=== PATIENT | male | born 1950 | race Caucasian/White ===

== ENCOUNTER 2018-05-21 13:37 | Emergency (ER) | payer MEDICARE, MEDICAID ==
[~2018-05-21] VITALS: Ht 185.4 cm; Wt 68.5 kg
--- NOTE | 2018-05-21 13:42 | NUR ---
CALLED IN WR, NO RESPONSE
--- NOTE | 2018-05-21 14:25 | NUR ---
FOUND PT OUTSIDE REC'D TO ER C/O RT GROIN PAIN AND LEES
--- NOTE | 2018-05-21 15:19 | NUR ---
Patient discharged to home in stable condition. Written and verbal after care instructions given. Patient verbalizes understanding of instruction.
[2018-05-21 15:25] VITALS: BP 133/89
== END 2018-05-21 15:26 | disposition home or self-care (01) ==
LOC: ER 13:38
DX: K40.90 Unilateral inguinal hernia, without obstruction or gangrene, not specified as recurrent (principal); F03.90 Unspecified dementia, unspecified severity, without behavioral disturbance, psychotic disturbance, mood disturbance, and anxiety; G93.40 Encephalopathy, unspecified; F17.200 Nicotine dependence, unspecified, uncomplicated; Z95.0 Presence of cardiac pacemaker; Z98.890 Other specified postprocedural states; Z60.2 Problems related to living alone
CPT/HCPCS: 74176; 99284; A4606; Z7610

== ENCOUNTER 2019-06-12 13:10 | Inpatient (IN) | payer MEDICARE, MEDICAID ==
[~2019-06-12] VITALS: Ht 175.3 cm; Wt 79.8 kg
--- NOTE | 2019-06-12 13:55 | NUR ---
Homeless/Suicidal "I dont want to live anymore I have a shitload of meds". PT AAOX3, VSS. RR EVEN & UNLABORED. DENIES CP, SOB, DIZZINESS, N/V @ THIS TIME. SEEN & EVAL'D BY DR. DAVILA. WILL CONT TO MONITOR. ANA @ BS.
[2019-06-12 14:05] LABS: BASOPHILS # (AUTO) 0.1 /CMM (0.0-0.2); BASOPHILS % (AUTO) 1.4 % (0.0-2.0); EOSINOPHILS % (AUTO) 1.3 % (0.0-6.0); HEMATOCRIT 45 % (39-51); LYMPHOCYTES # (AUTO) 1.4 /CMM (0.8-4.8); LYMPHOCYTES % (AUTO) 24.2 % (20.0-44.0); MEAN CORPUSCULAR HGB CONC 34 g/dl (31.0-36.0); MEAN CORPUSCULAR VOLUME 92 fL (80-96); MONOCYTES # (AUTO) 0.6 /CMM (0.1-1.30); MONOCYTES % (AUTO) 9.8 % (2.0-12.0); NEUTROPHILS # (AUTO) 3.6 /CMM (1.8-8.9); NEUTROPHILS % (AUTO) 63.3 % (43.0-81.0); PLATELET COUNT (AUTO) 316 /CMM (150-450); RED BLOOD CELL COUNT(AUTO) 4.83 MIL/uL (4.5-6.0); WHITE BLOOD COUNT (AUTO) 5.6 K/uL (4.3-11.0)
[2019-06-12 14:09] LABS: APPEARANCE,URINE Clear (CLEAR); BILIRUBIN,URINE SMALL (NEGATIVE); BLOOD, URINE Negative Ery/uL (NEGATIVE); COLOR,URINE Dark (YELLOW); KETONES,URINE 15 (NEGATIVE); LEUKOCYTE ESTERASE ,URINE Negative (NEGATIVE); NITRITE, URINE Negative (NEGATIVE); PROTEIN,URINE Negative (NEGATIVE); UGLUCOSE Negative (NEGATIVE)
[2019-06-12 14:12] LABS: CALCIUM, SERUM 9.3 mg/dL (8.5-10.1); CARBON DIOXIDE 31 mmol/L (21-32); CHLORIDE 101 mmol/L (98-107); GLUCOSE 138 mg/dL (74-106); SODIUM SERUM 136 mmol/L (136-145); UREA NITROGEN, BLOOD 13 mg/dL (7-18)
[2019-06-12 14:25] LABS: ACETAMINOPHEN < 10 ug/ml (10-30); ALANINE AMINOTRANSFERASE 31 U/L (12-78); ALBUMIN 3.7 g/dL (3.4-5.0); ALCOHOL, BLOOD < 3 mg/dL (0-0); ALKALINE PHOSPHATASE 64 U/L (46-116); ASPARTATE AMINOTRANSFERASE 20 U/L (15-37); BILIRUBIN,DIRECT 0.1 mg/dL (0.0-0.2); BILIRUBIN,TOTAL 0.4 mg/dL (0.2-1.0); SALICYLATE 3.9 mg/dL (2.8-20.0); TOTAL PROTEIN, SERUM 6.9 g/dL (6.4-8.2)
[2019-06-12] MEDS ORDERED: AMLO5TAB9 PO (15:20)
[2019-06-12] MEDS ORDERED: DOCU-141 PO (15:20)
[2019-06-12] MEDS ORDERED: BISA5TAB10 PO (15:20)
[2019-06-12] MEDS ORDERED: HYDR-4354 PO (15:20)
[2019-06-12] MEDS ORDERED: MULT-1168 PO (15:20)
[2019-06-12] MEDS ORDERED: GABA-532 PO (15:20)
[2019-06-12] MEDS ORDERED: TRAZ-214 PO (15:20)
[2019-06-12] MEDS ORDERED: SERT100T PO (15:20)
[2019-06-12] MEDS ORDERED: LORA1TAB PO (15:20)
[2019-06-12] MEDS ORDERED: ATOR10TA PO (15:20)
[2019-06-12] MEDS ORDERED: ALBU6.7H IH (15:21)
[2019-06-12] MEDS ORDERED: LIDO28.310 TP (15:23)
--- NOTE | 2019-06-12 16:00 | NUR ---
Patient is resting comfortably in bed with eyes closed. Easily aroused. VSS
--- NOTE | 2019-06-12 17:16 | NUR ---
REPORT GIVEN TO ROMAIN VANG FOR BLANQUITA
--- NOTE | 2019-06-12 19:30 | NUR ---
Admitted a 68 y/o male, homeless and evaluated at [facility]. On 5150 hold as DTS, per hold patient has SI with plan to overdose. Patient had multiple history of overdose per record. Patient admitting Dx. Psychosis. Medical dx. inguinal hernia, pacemaker, dementia. NKA. Upon face to face evaluation, patient appeared alert and oriented x 2-3, resting, paranoid, uncooperative, isolative and depressed mood. Patient denies SI/HI and hallucinations. Explained the paper works by the previous shift and patient signed the consents. Belongings and contraband checked by the previous shift. Q15 min checks started. Care plan started. Vital signs checked and recorded. Patient's rights discussed, guide to prescription meds handbook provided. Patient advised of the hold. Patient refused body check, patient refused and stated "dont bother me". Notified Dr. Wynn of the admission. Will monitor patient for mood, safety and behavior. Will endorse to the day shift.
--- NOTE | 2019-06-12 19:30 | NUR ---
Admitted a 68 y/o male, homeless and evaluated at [facility] On 5150 hold as DTS, per hold patient has SI with plan to overdose. Patient admitting Dx. Psychosis. Medical dx. inguinal hernia, pacemaker, dementia. NKA. Upon face to face evaluation, patient appeared alert and oriented x 1, paranoid, suspicious, aggressive, verbally abusive, uncooperative, anxious, confused, disorganize, disoriented. Speech is rambling and nonsensible. Explanation provided, limit settings done and redirected the patient. Explained the paper works and patient unable to sign the consents. Informed of visiting hours and unit policies. Belongings and contraband checked. Q15 min checks initiated. Care plan started. Vital signs checked and recorded. Patient's rights discussed, guide to prescription meds handbook provided. Patient advised of the hold. Notified Dr. Howard of the admission. Will monitor patient for mood, safety and behavior. Will endorse to the day shift. Addendum: 06/12/19 at 2024 by MONICA DARDEN II, RN ENTERED IN ERROR
[2019-06-12] MEDS ORDERED: ACETAMINOPHEN 325 MG TABLET PO PRN (21:00)
[2019-06-12] MEDS ORDERED: TEMAZEPAM 7.5 MG CAPSULE PO PRN (21:00)
[2019-06-12] MEDS ORDERED: MAG HYDROX/AL HYDROX/SIMETH 30 ML UDC PO PRN (21:00)
[2019-06-12] MEDS ORDERED: BLOOD SUGAR DIAGNOSTIC 1 EACH STRIP IN ONE (21:00)
[2019-06-12] MEDS ORDERED: MAGNESIUM HYDROXIDE 30 ML UDC PO PRN (21:00)
[2019-06-12] MEDS ORDERED: BISACODYL (5 MG) 5 MG TABLET.DR PO PRN (23:00)
[2019-06-12] MEDS ORDERED: ALBUTEROL SULFATE INH 18 GM HFA.AER.AD IH PRN (23:00)
[2019-06-12] MEDS: HYDROCODONE/APAP 10/325MG 1 EA TABLET PO PRN (23:51)
[2019-06-13] MEDS: LORAZEPAM 0.5 MG TABLET PO PRN ×2 (00:27→22:09)
[2019-06-13] MEDS ORDERED: ALBUTEROL FS 2.5 MG/0.5 ML VIAL.NEB NEB PRN (00:30)
--- NOTE | 2019-06-13 01:00 | NUR ---
GPS RN NOTE: PATIENT REQUESTING TO HAVE HIS INHALER AND THE ORDER IS ALBUTEROL HFA, RECEIVED AND ORDER FROM DANNI VERAS TO CHANGE THE ORDER INTO INH NOTED AND CARRIED OUT
[2019-06-13 01:43] VITALS: BP 135/65
--- NOTE | 2019-06-13 06:14 | NUR ---
GPS RN NOTE: PATIENT REFUSED ARJUN ()(RP) TO BE NOTIFIED OF HIS ADMISSION, PER PATIENT HE DON'T COMMUNICATE WITH HER FOR 15 YEARS. WILL CONTINUE TO MONITOR Q15 MINS FOR SAFETY
[2019-06-13 07:44] LABS: CHOLESTEROL 134 mg/dL (<200); HDL CHOLESTEROL 35 mg/dL (40-60); LDL 92 mg/dL (0-99); TRIGLYCERIDES 89 mg/dL (30-150)
[2019-06-13 08:00] VITALS: BP 103/73
[2019-06-13] MEDS: HYDROCODONE/APAP 10/325MG 1 EA TABLET PO PRN ×3 (08:08→22:14)
--- NOTE | 2019-06-13 08:12 | NUR ---
MEDICATED FOR NECK AND BACK PAIN WITH NORCO 10 MG PO.
[2019-06-13] MEDS: AMLODIPINE BESYLATE 5 MG TABLET PO SCH (09:00)
--- NOTE | 2019-06-13 10:36 | NUR ---
WOUND CARE CONSULT: PT SEEN ON REQUEST OF DR GARCIA FOR FACIAL LESION ABOVE UPPER LIP, PRESENT ON ADMISSION. PT STATES HAS HAD THIS LESION FOR A LONG TIME. SURGICAL CONSULT WAS CALLED TO DR ROCHA BY DR GARCIA. PT IS AMBULATORY AND CONTINENT. PT REFUSED FULL SKIN ASSESSMENT AT THIS TIME. WILL SEE PRN.
[2019-06-13] MEDS: NICOTINE PATCH (21MG) 21 MG PATCH.TD24 TD SCH (10:52)
[2019-06-13] MEDS: ATORVASTATIN 40 MG TABLET PO SCH (10:53)
[2019-06-13] MEDS: GABAPENTIN 100 MG CAPSULE PO SCH ×3 (10:54→17:48)
[2019-06-13] MEDS: OLANZAPINE 2.5 MG TABLET PO SCH ×2 (11:38→17:48)
--- NOTE | 2019-06-13 11:42 | NUR ---
DR. FRIEDMAN IN SPOKE WITH PT. PSYCH MEDS ORDERED,PT. STATES WON'T SIGN CONSENT.TOOK ZYPREXA.DR. YUAN IN AND TO CONTACT DR. MARQUES FOR LESION ON MOUTH WD NURSE IN WELL.
[2019-06-13] MEDS ORDERED: SERTRALINE HCL 25 MG TABLET PO ONE (12:00)
--- NOTE | 2019-06-13 13:45 | NUR ---
abram here with plans to do bx of lip lesion.
[2019-06-13] MEDS ORDERED: LIDOCAINE 1%-EPI 1:100,000 20 ML VIAL TP ONE (14:30)
--- NOTE | 2019-06-13 14:31 | NUR ---
pt. refused photo of lip lesion.
--- NOTE | 2019-06-13 15:13 | NUR ---
wharf labourer here and bx mass rt lip area done and taken to lab.pt. tolerated well.
[2019-06-13 16:00] VITALS: BP 124/84
--- NOTE | 2019-06-13 17:48 | NUR ---
given norco for pain.
[2019-06-13 20:26] VITALS: BP 123/65
[2019-06-13 20:30] VITALS: BP 127/65
[2019-06-13] MEDS: DIVALPROEX SODIUM 250 MG TABLET.DR PO SCH (22:09)
--- NOTE | 2019-06-13 22:15 | NUR ---
CARDIOPULMONARY SUPERVISOR NOTES COMPLIANT OF LOWER BACK PAIN AND FEELING ANXIETY, NORCO TABLET GIVEN WELL HIS ATIVAN TABLET. SNACKS ALSO SERVED. PT STATED "THANK YOU ". KEPT HIM COMFORTABLE AT ALL TIMES. PT REFUSED TO HAVE SIDE RAILS UP BUT BED IN LOW AND LOCK IN POSITION. WILL CONTINUE MONITORING.
--- NOTE | 2019-06-14 | NUR ---
SEARCH MANAGER NOTES PT SLEEPING COMFORTABLY IN BED WITHOUT ANY DISTRESS NOTED.
[2019-06-14] MEDS: HYDROCODONE/APAP 10/325MG 1 EA TABLET PO PRN ×2 (06:10→18:19)
--- NOTE | 2019-06-14 06:10 | NUR ---
DIRECTOR FEDERAL NOTES PAIN MGT. PT WOKE UP AND SEEN WALKING TO THE RESTROOM THEN AFTER THAT HE ASKED FOR PAIN MEDICATION, NORCO TABLET GIVEN ORDERED. EDUCATE PT REGARDING HIS PAIN MEDICATION FOR POSSIBLE SIDE EFFECT AND PT UNDERSTOOD WELL. STILL REFUSING HIS SIDE RAILS TO BE UP FOR HIS SAFETY. HE STATED "I'M OK ". KEPT HIM WARM AND COMFORTABLE AT ALL TIMES. WILL CONTINUE MONITORING.
[2019-06-14 08:00] VITALS: BP 102/62
[2019-06-14] MEDS: AMLODIPINE BESYLATE 5 MG TABLET PO SCH (09:00)
[2019-06-14] MEDS: OLANZAPINE 2.5 MG TABLET PO SCH ×2 (09:05→21:00)
[2019-06-14] MEDS: GABAPENTIN 100 MG CAPSULE PO SCH ×3 (09:05→17:00)
[2019-06-14] MEDS: NICOTINE PATCH (21MG) 21 MG PATCH.TD24 TD SCH (09:05)
[2019-06-14] MEDS: METFORMIN 500 MG TABLET PO SCH ×2 (09:06→17:00)
[2019-06-14] MEDS: ATORVASTATIN 40 MG TABLET PO SCH (09:06)
[2019-06-14] MEDS: DIVALPROEX SODIUM 250 MG TABLET.DR PO SCH ×2 (09:09→17:00)
[2019-06-14] MEDS: LORAZEPAM 0.5 MG TABLET PO PRN ×2 (11:30→21:37)
--- NOTE | 2019-06-14 11:35 | NUR ---
RN NOTES PATIENT IS AGITATED, GIVEN ATIVAN PO PRN. WILL CONTINUE TO MONITOR.
--- NOTE | 2019-06-14 11:53 | NUR ---
Initial discharge plan: Pt is homeless. SW will work with pt and MD regarding appropriate discharge planning. SW will form a safe and proper discharge.
[2019-06-14] MEDS ORDERED: OLANZAPINE 10 MG VIAL IM ONE (12:00)
--- NOTE | 2019-06-14 12:00 | NUR ---
GPS/RN-NOTES PATIENT GETTING AGGRESSIVE THREATENING TO HIT SOMEONE AND HIT THE NURSE STATION WALL AND CHASING STAFF. CALLED LELAND WAS CALLED.DR. FRIEDMAN MADE AWARE WITH T.O ORDER OF ZYPREXA 10MG IM STAT. NOTED AND CARRIED OUT.
--- NOTE | 2019-06-14 12:14 | NUR ---
GPS/RN-NOTES DR. IDALIA Turner ORDER OF 1:1 SITTER FOR SI AND AGGRESSIVE BEHAVIOR THREATENING TO HURT DR. GREER.
--- NOTE | 2019-06-14 13:19 | NUR ---
GPS/RN-NOTES SCOTTIE THE MANAGER LICENSING WILL FILE TARASOFF REPORT REGARDING PATIENT THREAT TO KILL DR. GREER. DR. DHALIWAL MADE AWARE.
--- NOTE | 2019-06-14 14:13 | NUR ---
GPS/RN-NOTES DR. FRIEDMAN MADE AWARE OF PATIENT TREAT TO KILL DR. GREER. AND THAT ANASTACIA RUBIN WILL FILE A TARASOFF REPORT.
--- NOTE | 2019-06-14 14:19 | NUR ---
Duty to Warn Note: This GEOCHEMIST, Caro Iqbal consulted with rn float Nimisha Silverman LCSW regarding pts verbal threat of intentions to kill SW and Dr. Magaña. Per rn float, a report to [facility] Duty to Warn Mental Evaluation Unit is not required since it is the responsibility of this hospital to treat and stabilize this patient. Patient is receiving medical treatment in the homero-psychiatric unit and will continue to be monitored for homicidally during his admission. Dr Wynn, his assigned psychiatrist was notified of these threats at 14:10 by Charge Nurse Ada. This copywriter also called and notified Dr Magaña of patients threats to kill him.
--- NOTE | 2019-06-14 15:19 | NUR ---
SW attempted to call pts emergency contact listed on facesheet, Ina Thompson, , at [phone], but phone number is no longer in service. ANASTACIA will continue to work on locating next of kin for pt.
[2019-06-14 16:00] VITALS: BP 118/70
--- NOTE | 2019-06-14 17:30 | NUR ---
RN NOTES UNABLE TO TAKE MEDICATION, PATIENT TOO SEDATED. DR. FRIEDMAN ON UNIT AND MADE AWARE. WILL CONTINUE TO MONITOR.
--- NOTE | 2019-06-14 20:18 | NUR ---
GPS/BREAKER MECHANIC NOTES: PT. REFUSED HS VITALS SIGNS. GETS UPSET. WANTS TO REST. CHARGE NURSE MADE AWARE.
[2019-06-14] MEDS: TEMAZEPAM 7.5 MG CAPSULE PO PRN (21:37)
--- NOTE | 2019-06-14 22:00 | NUR ---
GPS/LITHOGRAPHIC PHOTOGRAPHER APPRENTICE NOTES: PT. REFUSED HS OLANZAPINE 10MG PO ORDERED. OFFERED 3X. EXPLAINED RISK AND BENEFITS. PT. STILL REFUSED.
[2019-06-15] MEDS: HYDROCODONE/APAP 10/325MG 1 EA TABLET PO PRN ×3 (02:17→22:10)
--- NOTE | 2019-06-15 07:30 | NUR ---
INITIAL PT RESTING QUIETLY RESPIRATION EVEN NO DISTRESS NOTED WILL CONTINUE TO MONITOR
[2019-06-15 08:00] VITALS: BP 127/70
[2019-06-15] MEDS: ATORVASTATIN 40 MG TABLET PO SCH (09:07)
[2019-06-15] MEDS: METFORMIN 500 MG TABLET PO SCH ×2 (09:07→16:44)
[2019-06-15] MEDS: AMLODIPINE BESYLATE 5 MG TABLET PO SCH (09:08)
[2019-06-15] MEDS: GABAPENTIN 100 MG CAPSULE PO SCH ×3 (09:08→16:44)
[2019-06-15] MEDS: DIVALPROEX SODIUM 250 MG TABLET.DR PO SCH ×2 (09:08→16:44)
[2019-06-15] MEDS: OLANZAPINE 2.5 MG TABLET PO SCH ×2 (09:08→22:10)
[2019-06-15] MEDS: NICOTINE PATCH (21MG) 21 MG PATCH.TD24 TD SCH (09:09)
--- NOTE | 2019-06-15 11:46 | NUR ---
MEDICATIONS PT REFUSED SEROQUEL AND DEPAKOTE
--- NOTE | 2019-06-15 15:17 | NUR ---
GROUP NOTE: SW prompted pt to attend group on 06/15/19 at 2:30pm discussing goal setting for while they are in the hospital and after discharge, but pt declined to participate.
--- NOTE | 2019-06-15 15:54 | NUR ---
WOUND CLEANSE LEFT FORE ARM ABOVE THE WRIST WITH NORMAL SALINE. THEN PAT DRY. AFTER APPLYING XEROFORM AND COVERED WITH BORDERED GAUZE.
[2019-06-15 16:00] VITALS: BP 151/95
[2019-06-15] MEDS: LORAZEPAM 0.5 MG TABLET PO PRN (18:32)
[2019-06-16 08:00] VITALS: BP 113/66
[2019-06-16] MEDS: HYDROCODONE/APAP 10/325MG 1 EA TABLET PO PRN ×3 (08:17→22:00)
--- NOTE | 2019-06-16 08:17 | NUR ---
medicated for back pain with norco 10 mg po.
[2019-06-16] MEDS: DIVALPROEX SODIUM 250 MG TABLET.DR PO SCH ×4 (09:00→17:26)
[2019-06-16] MEDS: AMLODIPINE BESYLATE 5 MG TABLET PO SCH (09:00)
[2019-06-16] MEDS: NICOTINE PATCH (21MG) 21 MG PATCH.TD24 TD SCH ×2 (09:00→14:49)
[2019-06-16] MEDS: GABAPENTIN 100 MG CAPSULE PO SCH ×3 (09:11→17:26)
[2019-06-16] MEDS: DOCUSATE SODIUM 100 MG CAPSULE PO PRN (09:11)
[2019-06-16] MEDS: ATORVASTATIN 40 MG TABLET PO SCH (09:11)
[2019-06-16] MEDS: METFORMIN 500 MG TABLET PO SCH ×2 (09:12→17:26)
[2019-06-16] MEDS: OLANZAPINE 2.5 MG TABLET PO SCH ×2 (09:12→21:35)
--- NOTE | 2019-06-16 09:24 | NUR ---
refused am depakote.
--- NOTE | 2019-06-16 12:10 | NUR ---
just off floor for complete lumbar spine x-ray.
--- NOTE | 2019-06-16 14:50 | NUR ---
pt. now requesting pain med-norco for back pain.additionally wants nicotine patch which he refused this am.
[2019-06-16 16:00] VITALS: BP 116/59
--- NOTE | 2019-06-16 18:30 | NUR ---
PHOTOS OF LT. FOREARM SKIN ABRASION AND LT. SWOLLEN HAND.PT. STATED HE SUSTAINED A FEW DAYS AGO WHEN DIRECTOR FINANCIAL PLANNING WAS HOLDING HIM.TEGADERM APPLIED.
[2019-06-16] MEDS: LORAZEPAM 0.5 MG TABLET PO PRN (20:01)
[2019-06-16 21:06] VITALS: BP 115/71
[2019-06-17] MEDS: TEMAZEPAM 7.5 MG CAPSULE PO PRN (01:04)
[2019-06-17] MEDS: HYDROCODONE/APAP 10/325MG 1 EA TABLET PO PRN ×3 (05:51→23:53)
--- NOTE | 2019-06-17 07:18 | NUR ---
RN NOTES: 1:1 SITTER AT BED SIDE FOR PT. SAFETY AND BEHAVIOR, WILL CONTINUITY WITH CARE.
[2019-06-17 08:00] VITALS: BP 109/60
[2019-06-17] MEDS: DIVALPROEX SODIUM 250 MG TABLET.DR PO SCH ×3 (09:00→17:00)
[2019-06-17] MEDS: METFORMIN 500 MG TABLET PO SCH ×3 (09:00→17:00)
[2019-06-17] MEDS: ATORVASTATIN 40 MG TABLET PO SCH (09:20)
[2019-06-17] MEDS: DOCUSATE SODIUM 100 MG CAPSULE PO PRN ×2 (09:20→17:29)
[2019-06-17] MEDS: GABAPENTIN 100 MG CAPSULE PO SCH ×3 (09:20→17:29)
[2019-06-17] MEDS: NICOTINE PATCH (21MG) 21 MG PATCH.TD24 TD SCH (09:20)
[2019-06-17] MEDS: AMLODIPINE BESYLATE 5 MG TABLET PO SCH (09:21)
[2019-06-17] MEDS: OLANZAPINE 10 MG TABLET PO SCH ×2 (09:29→21:33)
[2019-06-17] MEDS ORDERED: OLANZAPINE 10 MG TABLET PO SCH (09:30)
[2019-06-17] MEDS: LORAZEPAM 0.5 MG TABLET PO PRN ×2 (11:43→20:53)
[2019-06-17 16:06] VITALS: BP 124/80
[2019-06-17 19:56] VITALS: BP 121/71
[2019-06-18 08:00] VITALS: BP 121/62
[2019-06-18] MEDS: NICOTINE PATCH (21MG) 21 MG PATCH.TD24 TD SCH (08:04)
[2019-06-18] MEDS: GABAPENTIN 100 MG CAPSULE PO SCH ×3 (08:05→16:23)
[2019-06-18] MEDS: ATORVASTATIN 40 MG TABLET PO SCH (08:05)
[2019-06-18] MEDS: AMLODIPINE BESYLATE 5 MG TABLET PO SCH (08:09)
[2019-06-18] MEDS: HYDROCODONE/APAP 10/325MG 1 EA TABLET PO PRN ×3 (08:30→21:31)
[2019-06-18] MEDS: METFORMIN 500 MG TABLET PO SCH ×2 (09:00→16:24)
[2019-06-18] MEDS: OLANZAPINE 10 MG TABLET PO SCH ×2 (09:00→20:20)
[2019-06-18] MEDS: DIVALPROEX SODIUM 250 MG TABLET.DR PO SCH ×2 (09:00→16:24)
--- NOTE | 2019-06-18 14:10 | NUR ---
SNF Referral: ANASTACIA faxed a referral to [facility] with attention to PARVEEN and Luis Felipe to the fax number: [phone].
--- NOTE | 2019-06-18 14:35 | NUR ---
SNF Contact: PARVEEN ([phone]) from [facility] contacted the SW and stated that the pt was accepted to their facility pending a clearance for aggressive behavior.
--- NOTE | 2019-06-18 15:47 | NUR ---
GROUP NOTE: SW encouraged pt to participate in group on this present day discussing "discharge planning." Pt refused to attend and speak to SW; pt is on a one to one for aggressive behavior.
[2019-06-18 16:00] VITALS: BP 146/70
[2019-06-18] MEDS: LORAZEPAM 0.5 MG TABLET PO PRN (18:38)
[2019-06-18 20:37] VITALS: BP 131/85
[2019-06-19] MEDS: HYDROCODONE/APAP 10/325MG 1 EA TABLET PO PRN ×4 (04:42→23:22)
--- NOTE | 2019-06-19 07:03 | NUR ---
RN NOTES: 1:1 SITTER AT BED SIDE FOR PT. SAFETY AND BEHAVIOR, WILL CONTINUITY WITH CARE.
[2019-06-19 08:00] VITALS: BP 99/54
[2019-06-19] MEDS: GABAPENTIN 100 MG CAPSULE PO SCH ×3 (09:00→16:57)
[2019-06-19] MEDS: METFORMIN 500 MG TABLET PO SCH ×2 (09:00→16:58)
[2019-06-19] MEDS: ATORVASTATIN 40 MG TABLET PO SCH (09:00)
[2019-06-19] MEDS: DIVALPROEX SODIUM 250 MG TABLET.DR PO SCH (09:00)
[2019-06-19] MEDS: AMLODIPINE BESYLATE 5 MG TABLET PO SCH (09:00)
[2019-06-19] MEDS: OLANZAPINE 10 MG TABLET PO SCH ×2 (09:00→20:20)
[2019-06-19] MEDS: NICOTINE PATCH (21MG) 21 MG PATCH.TD24 TD SCH (09:06)
--- NOTE | 2019-06-19 14:25 | NUR ---
Individual Intervention: SW met with the pt with his MD, Dr. Montes, and his discharge plan was discussed. Pt was informed that he was accepted to a detention called [facility]. He stated that he accepts the placement but he will not leave until he has his surgery. Pt stated that he has been depressed and feels as if he needs certain events in his life to go right. SW stated that she would update him regarding his discharge.
--- NOTE | 2019-06-19 14:25 | NUR ---
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 surgery will be on tuesday per plastic surgeon and pt needs to be transferred to medical floor on tuesday. pt aware and agreed. pt to sign consents once pt is in the medical floor.
--- NOTE | 2019-06-19 15:15 | NUR ---
Substance Use Intervention: SW conducted a substance abuse intervention with the pt due to his cannabis and alcohol use.
[2019-06-19] MEDS: DULOXETINE HCL 30 MG CAPSULE.DR PO SCH (15:36)
[2019-06-19 16:00] VITALS: BP 145/78
--- NOTE | 2019-06-19 16:05 | NUR ---
GROUP NOTE: SW encouraged pt to participate in group on this present day discussing "positive coping skills." Pt refused to attend stating he wanted to stay in his room and continue reading his book. Pt can become aggressive and labile, SW attempted to provide intervention to discuss treatment goals but pt refused.
--- NOTE | 2019-06-19 16:58 | NUR ---
gps belt tender: notes c/o 03/07 lower back pain, medicated with norco 1 tab po as ordered. will continue to monitor.
--- NOTE | 2019-06-19 17:58 | NUR ---
gps ramp flight attendant: notes in the dining room watching tv. voiced no discomfort. needs attended. will monitor.
[2019-06-19] MEDS: LORAZEPAM 0.5 MG TABLET PO PRN (20:19)
[2019-06-19 20:31] VITALS: BP 175/98
[2019-06-19 20:40] VITALS: BP 138/79
[2019-06-20] MEDS: HYDROCODONE/APAP 10/325MG 1 EA TABLET PO PRN ×3 (05:58→18:52)
[2019-06-20 08:00] VITALS: BP 112/64
[2019-06-20] MEDS: METFORMIN 500 MG TABLET PO SCH ×2 (09:18→16:54)
[2019-06-20] MEDS: GABAPENTIN 100 MG CAPSULE PO SCH ×3 (09:19→16:52)
[2019-06-20] MEDS: DULOXETINE HCL 30 MG CAPSULE.DR PO SCH (09:19)
[2019-06-20] MEDS: OLANZAPINE 10 MG TABLET PO SCH ×2 (09:19→20:32)
[2019-06-20] MEDS: AMLODIPINE BESYLATE 5 MG TABLET PO SCH (09:19)
[2019-06-20] MEDS: ATORVASTATIN 40 MG TABLET PO SCH (09:19)
[2019-06-20] MEDS: NICOTINE PATCH (21MG) 21 MG PATCH.TD24 TD SCH (09:19)
--- NOTE | 2019-06-20 12:24 | NUR ---
RN NOTE: PATIENT C/O PAIN 04/07 TO BACK. ADMINISTERED PRN NORCO.
--- NOTE | 2019-06-20 12:26 | NUR ---
TARASOFF REPORT: NOTE WRITTEN ON 06/14/19 AT 1452: Per psychiatrist Dr. Howard SW contact [facility] and make a TARASOFF report [phone] due to pt threatening to kill psychiatrist Dr. Magaña. ANASTACIA contacted [facility] [phone] and spoke with Officer Oleg wen #[id number] who stated that TARASOFF is only required when the person in danger is not aware. ANASTACIA informed officer that psychiatrist was present when the patient made the threat and is aware. Per officer Oleg a TARASOFF report is not needed at this time.
[2019-06-20 16:00] VITALS: BP 138/82
--- NOTE | 2019-06-20 16:01 | NUR ---
Group Note: SW encouraged pt to participate in group on 06/20/19 at 2pm discussing discharge planning. Pt refused to attend stating he wanted to stay in his room and continue reading his book. Pt can become aggressive and labile, SW attempted to provide intervention to discuss treatment goals but pt refused.
[2019-06-20 20:32] VITALS: BP 134/71
[2019-06-20] MEDS: TEMAZEPAM 7.5 MG CAPSULE PO PRN (21:29)
[2019-06-21] MEDS: HYDROCODONE/APAP 10/325MG 1 EA TABLET PO PRN ×4 (01:41→21:29)
[2019-06-21 06:53] LABS: BASOPHILS # (AUTO) 0.1 /CMM (0.0-0.2); BASOPHILS % (AUTO) 2.3 % (0.0-2.0); EOSINOPHILS % (AUTO) 3.4 % (0.0-6.0); HEMATOCRIT 38 % (39-51); HEMOGLOBIN 13.1 g/dL (13.5-17.5); LYMPHOCYTES # (AUTO) 1.5 /CMM (0.8-4.8); LYMPHOCYTES % (AUTO) 35.5 % (20.0-44.0); MEAN CORPUSCULAR HGB CONC 34 g/dl (31.0-36.0); MEAN CORPUSCULAR VOLUME 90 fL (80-96); MONOCYTES # (AUTO) 0.5 /CMM (0.1-1.30); MONOCYTES % (AUTO) 12.5 % (2.0-12.0); NEUTROPHILS # (AUTO) 1.9 /CMM (1.8-8.9); NEUTROPHILS % (AUTO) 46.3 % (43.0-81.0); PLATELET COUNT (AUTO) 225 /CMM (150-450); RED BLOOD CELL COUNT(AUTO) 4.24 MIL/uL (4.5-6.0); WHITE BLOOD COUNT (AUTO) 4.1 K/uL (4.3-11.0)
[2019-06-21 07:10] LABS: CALCIUM, SERUM 8.6 mg/dL (8.5-10.1); CREATININE 0.9 mg/dL (0.6-1.3); MAGNESIUM 1.7 mg/dL (1.8-2.4); PHOSPHORUS 3.9 mg/dL (2.5-4.9); POTASSIUM 4.3 mmol/L (3.5-5.1)
[2019-06-21 07:20] LABS: THYROID STIMULATING HORMONE 1.573 uIU/mL (0.358-3.74)
[2019-06-21 08:00] VITALS: BP 148/85
[2019-06-21] MEDS ORDERED: MAGNESIUM OXIDE 400 MG TABLET PO ONE (08:00)
[2019-06-21] MEDS: NICOTINE PATCH (21MG) 21 MG PATCH.TD24 TD SCH (08:07)
[2019-06-21] MEDS: OLANZAPINE 10 MG TABLET PO SCH ×2 (08:07→20:21)
[2019-06-21] MEDS: ATORVASTATIN 40 MG TABLET PO SCH (08:08)
[2019-06-21] MEDS: AMLODIPINE BESYLATE 5 MG TABLET PO SCH (08:08)
[2019-06-21] MEDS: METFORMIN 500 MG TABLET PO SCH ×2 (08:08→16:30)
[2019-06-21] MEDS: DULOXETINE HCL 30 MG CAPSULE.DR PO SCH (08:08)
[2019-06-21] MEDS: GABAPENTIN 100 MG CAPSULE PO SCH ×3 (08:08→16:29)
[2019-06-21] MEDS ORDERED: Magnesium 1GM/D5W 100ML PREMIX 100 ML IV SCH (09:30)
[2019-06-21 16:00] VITALS: BP 147/78
--- NOTE | 2019-06-21 16:09 | NUR ---
Group Note: SW encouraged pt to participate in group on 06/21/19 at 2pm discussing social supports. Pt refused to attend stating he wanted to stay in his room and continue reading his book. Pt can become aggressive and labile, SW attempted to provide intervention to discuss treatment goals but pt refused.
[2019-06-21 20:27] VITALS: BP 112/65
[2019-06-21] MEDS: LORAZEPAM 0.5 MG TABLET PO PRN (20:43)
[2019-06-21 21:31] VITALS: BP 133/68
[2019-06-22] MEDS: HYDROCODONE/APAP 10/325MG 1 EA TABLET PO PRN ×2 (05:10→16:46)
[2019-06-22 08:00] VITALS: BP 111/66
[2019-06-22] MEDS: OLANZAPINE 10 MG TABLET PO SCH (08:09)
[2019-06-22] MEDS: AMLODIPINE BESYLATE 5 MG TABLET PO SCH (08:09)
[2019-06-22] MEDS: NICOTINE PATCH (21MG) 21 MG PATCH.TD24 TD SCH (08:10)
[2019-06-22] MEDS: DULOXETINE HCL 30 MG CAPSULE.DR PO SCH (08:10)
[2019-06-22] MEDS: ATORVASTATIN 40 MG TABLET PO SCH (08:10)
[2019-06-22] MEDS: GABAPENTIN 100 MG CAPSULE PO SCH ×3 (08:10→16:46)
[2019-06-22] MEDS: METFORMIN 500 MG TABLET PO SCH ×2 (08:10→16:46)
--- NOTE | 2019-06-22 15:04 | NUR ---
Discharge Note: Pt will be discharged to the medical floor for scheduled surgery.
[2019-06-22 16:00] VITALS: BP 124/68
--- NOTE | 2019-06-22 18:14 | NUR ---
DAIRY EQUIPMENT SPECIALIST NOTE: PATIENT IS A 68 Y/O MALE DISCHARGED TO TELE ROOM 307-1. SCHEDULED FOR PACEMAKER SURGERY TOMORROW. PATIENT IS IN STABLE CONDITION. AMBULATORY WITH STEADY GAIT. VSS. NO ACUTE DISTRESS NOTED. COMPLIANT WITH MEDICATIONS MANAGEMENT. COOPERATIVE WITH PLAN OF CARE. PSYCHIATRIC TREATMENT PLANS MET. DENIES ANY SI/HI/AVH AT THE TIME OF DISCHARGE. PATIENT REFUSED SKIN ASSESSMENT. EDUCATED PATIENT ABOUT AFTERCARE WITH COPY PROVIDED. RETURNED BELONGINGS TO PATIENT. MEDICATIONS RECONCILED ALONG WITH PSYCHIATRIC DISCHARGE ORDERS. DISCHARGE PAPERWORK SIGNED. FOR FOLLOW UP WITH PSYCHIATRIST AND CARPENTRY TEACHER WITHIN 1 WEEK. PATIENT LEFT [facility] VIA WHEELCHAIR ACCOMPANIED BY NURSING STAFF. REPORT GIVEN TO LEO VANG.
[2019-06-22] MEDS ORDERED: IV NS 0.9% 1,000 ML IV PRN (22:00)
== END 2019-06-22 18:14 | disposition short-term general hospital (02) | DRG 885 ==
LOC: ER 13:21 → GPS 17:31
PROVIDERS: ADMIT Psychiatry & Neurology Psychosomatic Medicine; ATTEND Nurse Practitioner Acute Care
PROC: 0CB0XZX Excision of Upper Lip, External Approach, Diagnostic (ICD-10-PCS; principal; 2019-06-13)
DX: F25.0 Schizoaffective disorder, bipolar type (principal); R45.851 Suicidal ideations; I10 Essential (primary) hypertension; G89.29 Other chronic pain; J44.9 Chronic obstructive pulmonary disease, unspecified; F03.90 Unspecified dementia, unspecified severity, without behavioral disturbance, psychotic disturbance, mood disturbance, and anxiety; E78.5 Hyperlipidemia, unspecified; M54.5 Low back pain; Z95.0 Presence of cardiac pacemaker; K40.90 Unilateral inguinal hernia, without obstruction or gangrene, not specified as recurrent; S51.812A Laceration without foreign body of left forearm, initial encounter; X58.XXXA Exposure to other specified factors, initial encounter; Y92.89 Other specified places as the place of occurrence of the external cause; C44.01 Basal cell carcinoma of skin of lip; F19.10 Other psychoactive substance abuse, uncomplicated; Z91.19 Patient's noncompliance with other medical treatment and regimen; R32 Unspecified urinary incontinence; Z59.0 Homelessness
CPT/HCPCS: 36415; 71045-TC; 72110-TC; 80048-TC; 80061-TC; 80076-TC; 80305; 81000-TC; 82565-TC; 83735-TC; 84100-TC; 84443-TC; 85025-TC; 85610-TC; 87081-TC; 88305-TC; 92526; 92611-TC; 93307-TC; 97116-TC; 97530-TC; G0480; J3475; J3490

== ENCOUNTER 2019-06-22 18:41 | Inpatient (IN) | payer MEDICARE, MEDICAID ==
[~2019-06-22] VITALS: Ht 185.4 cm; Wt 83.9 kg
[~2019-06-22 18:41] MED LIST: ALBU6.7H IH; AMLO5TAB9 PO; ATOR10TA PO; BISA5TAB10 PO; DOCU-141 PO; GABA-532 PO; HYDR-4354 PO; LIDO28.310 TP; LORA1TAB PO; MULT-1168 PO; SERT100T PO; TRAZ-214 PO
--- NOTE | 2019-06-22 19:10 | NUR ---
YARD HAND ADMITTING NOTES RECEIVED PT IN BED AWAKE AND ABLE TO MAKE NEEDS KNOWN. PT ARRIVED ON UNIT AT 1850 FROM GPS VIA WHEELCHAIR. PT A/O X3. RESPIRATIONS EVEN AND UNLABORED WITH NO S/S OF ACUTE DISTRESS OR SOB NOTED. PT ON TELE MONITORING WITH SINUS RHYTHM @80S. PT REFUSED SKIN CHECK AND PHOTOS AT THIS TIME. NO COMPLAINTS OF PAIN AT THIS TIME. SAFETY MEASURES IN PLACE WITH BED IN LOWEST LOCKED POSITION WITH SIDE RAILS UP X2. ORIENTED PT TO ROOM AND STAFF. CALL LIGHT WITHIN REACH. WILL CONTINUE TO MONITOR.
--- NOTE | 2019-06-22 19:10 | NUR ---
COST AND SALES RECORD SUPERVISOR NOTES PT REFUSED PT ITEM CHECKLIST AT THIS TIME.
[2019-06-22] MEDS ORDERED: ACETAMINOPHEN 325 MG TABLET PO PRN (22:00)
[2019-06-22] MEDS ORDERED: ONDANSETRON HCL/PF 4 MG/2 ML VIAL IVP PRN (22:00)
[2019-06-22] MEDS: LORAZEPAM 1 MG TABLET PO PRN (22:24)
[2019-06-22] MEDS ORDERED: DEXTROSE 50%-WATER 50 ML DISP.SYRIN IV PRN (22:30)
[2019-06-22] MEDS: HYDROCODONE/APAP 10/325MG 1 EA TABLET PO PRN (23:17)
--- NOTE | 2019-06-22 23:17 | NUR ---
WAREHOUSER NOTES PT GIVEN NORCO FOR PAIN IN BACK AND NECK. WILL CONTINUE TO MONITOR.
[2019-06-23] MEDS: MORPHINE SULFATE INJ 2 MG/ML DISP.SYRIN IV PRN ×2 (05:49→11:49)
[2019-06-23 05:57] LABS: BASOPHILS # (AUTO) 0.1 /CMM (0.0-0.2); BASOPHILS % (AUTO) 2.4 % (0.0-2.0); EOSINOPHILS % (AUTO) 2.9 % (0.0-6.0); HEMATOCRIT 38 % (39-51); HEMOGLOBIN 12.8 g/dL (13.5-17.5); LYMPHOCYTES # (AUTO) 1.5 /CMM (0.8-4.8); LYMPHOCYTES % (AUTO) 33.4 % (20.0-44.0); MEAN CORPUSCULAR HGB CONC 33 g/dl (31.0-36.0); MEAN CORPUSCULAR VOLUME 91 fL (80-96); MONOCYTES # (AUTO) 0.6 /CMM (0.1-1.30); NEUTROPHILS # (AUTO) 2.2 /CMM (1.8-8.9); NEUTROPHILS % (AUTO) 47.3 % (43.0-81.0); PLATELET COUNT (AUTO) 227 /CMM (150-450); WHITE BLOOD COUNT (AUTO) 4.6 K/uL (4.3-11.0)
[2019-06-23 06:18] LABS: CALCIUM, SERUM 8.6 mg/dL (8.5-10.1); MAGNESIUM 1.8 mg/dL (1.8-2.4); PHOSPHORUS 4.2 mg/dL (2.5-4.9); POTASSIUM 4.4 mmol/L (3.5-5.1)
[2019-06-23] MEDS: BLOOD SUGAR DIAGNOSTIC 1 EACH STRIP IN SCH ×4 (06:30→21:45)
--- NOTE | 2019-06-23 06:45 | NUR ---
BOX LOADER NOTES PT IN BED AWAKE AND ABLE TO MAKE NEEDS KNOWN. PT A/O X3. RESPIRATIONS EVEN AND UNLABORED WITH NO S/S OF ACUTE DISTRESS OR SOB NOTED THROUGHOUT SHIFT. PT ON TELE MONITORING WITH SINUS RHYTHM @60S. SAFETY MEASURES IN PLACE WITH BED IN LOWEST LOCKED POSITION WITH SIDE RAILS UP X2. PT AWAITING PICKUP FOR SURGERY. CALL LIGHT WITHIN REACH. WILL ENDORSE TO ONCOMING NURSE FOR BLANQUITA.
--- NOTE | 2019-06-23 07:00 | NUR ---
BOWLING BALL MOLD ASSEMBLER NOTES PT TRANSFERRED TO OR IN STABLE CONDITION.
[2019-06-23] MEDS ORDERED: LIDOCAINE HCL/MPF 1% 30 ML VIAL IJ ONE (07:13)
[2019-06-23] MEDS ORDERED: IOHEXOL 0 ML IV ONE (07:13)
[2019-06-23] MEDS ORDERED: ANESTHESIA TRAY IN PYXIS 1 EA TRAY MC ONE (07:13)
[2019-06-23] MEDS ORDERED: FENTANYL PF 100MCG/2ML AMPUL ONE (07:22)
--- NOTE | 2019-06-23 07:30 | NUR ---
RN NOTES PATIENT STILL IN OR
[2019-06-23 09:00] VITALS: BP 112/75
--- NOTE | 2019-06-23 09:00 | NUR ---
PATIENT BROUGHT BACK FROM THE UNIT FROM OR, S/P PACEMAKER GENERATOR EXCHANGE. PATIENT IS A/OX3, ABLE TO MAKE NEEDS KNOWN. VS STABLE. NOT IN ANY FORM OF DISTRESS. NO SOB. DENIED PAIN OR DISCOMFORT AT THIS TIME. IV ACCESS INTACT AND PATENT. DRESSING C/D/I SURGICAL SITE ON LEFT UPPER CHEST. KEPT PATUIENT SAFE AND COMFORTABLE. BED IN LOW/LOCKED POSITION, SIDERAILS UP X2, CALL LIGHT IN REACH. WILL CONTINUE TO MOIOTR ACCORDINGLY.
[2019-06-23] MEDS: GABAPENTIN 100 MG CAPSULE PO SCH ×3 (09:19→16:21)
[2019-06-23] MEDS: AMLODIPINE BESYLATE 5 MG TABLET PO SCH (09:20)
[2019-06-23] MEDS: SERTRALINE HCL 50 MG TABLET PO SCH (09:20)
[2019-06-23] MEDS: ATORVASTATIN 10 MG TABLET PO SCH (09:20)
[2019-06-23 09:30] VITALS: BP_SYST 112; BP_SYST 115; BP_DIAS 78
--- NOTE | 2019-06-23 13:10 | NUR ---
RN NOTES PATIENT REPORTED THAT HIS FACE FEELS WARM AND FINGERS AND TOES FELT COLD. NOTED PATIENT'S FACE ARCADIO RED. ASSESSED HIS BODY, NOTED BLANCHABLE REDNESS ALL OVER THE BODY. VS STABLE..TEMP=97.9, BP= 132/79, P=86, 02SAT 96% ROOM AIR NOTIFIED DR PURVIS. GOT ORDERS FOR BENADRYL 25MG IV PRN Q6HR. 13:20 BENADRYL 25MG IV GIVEN ORDERED. WILL MONITOR ACCORDINGLY.
[2019-06-23] MEDS: diphenhydrAMINE HCL 50 MG/ML VIAL IV PRN (13:20)
[2019-06-23 16:00] VITALS: BP 112/69
--- NOTE | 2019-06-23 16:30 | NUR ---
RN NOTES TEMP= 101.2. TYLENOL 650MG PO GIVEN ORDERED. COOLING MEASURES INITIATED. NOTIFIED DR PURVIS
--- NOTE | 2019-06-23 17:15 | NUR ---
RN NOTES INFORMED DR PRESSLEY ABOUT PATIENT'S CONDITION (FACIAL AND BODY REDNESS). PER MD, "WE DIDNT GIVE HIM ANY CONTRAST." NO NEW ORDERS FROM DR PRESSLEY.
[2019-06-23] MEDS: INSULIN REGULAR, HUMAN 100 UNIT/ML 3 ML VIAL SQ PRN ×2 (17:16→21:48)
--- NOTE | 2019-06-23 17:30 | NUR ---
rn notes temp= 100.7. patient verbalized he is feeling better now.
--- NOTE | 2019-06-23 18:00 | NUR ---
RN NOTES TEMP=98.1. WILL CONTINUE TO MONIOTR ACCORDINGLY.
--- NOTE | 2019-06-23 19:30 | NUR ---
MS RN OPENING NOTES PATIENT RECEIVED SLEEPING IN BED, EASILY AROUSABLE. BREATHING EVEN AND UNLABORED. NOT IN ANY DISTRESS. 1:1 SITTER AT BEDSIDE. SAFETY MEASURES IN PLACE. CALL LIGHT WITHIN REACH. BED IN LOW, LOCKED POSITION. WILL CONTINUE TO MONITOR ACCORDINGLY
--- NOTE | 2019-06-23 19:30 | NUR ---
RN CLOSING NOTES PATIENT IN STABLE CONDITION. ALL NEEDS ATTENDED AND PROVIDED. ALL DUE MEDICATIONS GIVEN ORDERED. ASSISTED WITH ADLS. KEPT PATIENT SAFE AND COMFORTABLE. BED IN LOW/LOCKED POSITION, SIDERAILS UPX2, CALL LIGHT IN REACH. ENDORSED TO NIGHT RN FOR BLANQUITA.
[2019-06-23 20:00] VITALS: BP 100/47
[2019-06-23] MEDS: HYDROCODONE/APAP 10/325MG 1 EA TABLET PO PRN (21:57)
--- NOTE | 2019-06-23 21:59 | NUR ---
RN NOTES BSL CHECKED- 142MG/DL. 2 UNITS OF INSULIN GOVEN PER SLIDING SCALE. PATIENT C/O LOWER BACK PAIN, 03/07. NORCO 10/325 PO GIVEN ORDERED. WILL CONTINUE TO MONITOR
[2019-06-24] MEDS: LORAZEPAM 1 MG TABLET PO PRN ×2 (00:50→20:45)
[2019-06-24] MEDS: HYDROCODONE/APAP 10/325MG 1 EA TABLET PO PRN ×4 (05:55→23:56)
--- NOTE | 2019-06-24 05:56 | NUR ---
RN NOTES PATIENT C/O LOWER BACK PAIN, 04/07. NORCO 10/325 PO GIVEN ORDERED. WILL CONTINUE TO MONITOR
[2019-06-24 06:37] LABS: BASOPHILS % (AUTO) 0.7 % (0.0-2.0); EOSINOPHILS % (AUTO) 2.2 % (0.0-6.0); HEMATOCRIT 37 % (39-51); HEMOGLOBIN 12.4 g/dL (13.5-17.5); LYMPHOCYTES # (AUTO) 0.8 /CMM (0.8-4.8); LYMPHOCYTES % (AUTO) 12.6 % (20.0-44.0); MEAN CORPUSCULAR HGB CONC 34 g/dl (31.0-36.0); MEAN CORPUSCULAR VOLUME 91 fL (80-96); MONOCYTES # (AUTO) 0.7 /CMM (0.1-1.30); MONOCYTES % (AUTO) 11.6 % (2.0-12.0); NEUTROPHILS # (AUTO) 4.3 /CMM (1.8-8.9); NEUTROPHILS % (AUTO) 72.9 % (43.0-81.0); PLATELET COUNT (AUTO) 205 /CMM (150-450); RED BLOOD CELL COUNT(AUTO) 4.02 MIL/uL (4.5-6.0)
[2019-06-24] MEDS: BLOOD SUGAR DIAGNOSTIC 1 EACH STRIP IN SCH ×4 (06:39→22:09)
[2019-06-24] MEDS: INSULIN REGULAR, HUMAN 100 UNIT/ML 3 ML VIAL SQ PRN ×3 (06:40→18:03)
--- NOTE | 2019-06-24 06:50 | NUR ---
RN CLOSING NOTES PATIENT IN STABLE CONDITION. ALL NEEDS ATTENDED AND PROVIDED. ALL DUE MEDICATIONS GIVEN ORDERED. NO ACUTE CHANGES OVERNIGHT. BSL CHECKED- 142 MG/DL. 2 UNITS OF INSULIN GIVEN PER SLIDING SCALE. KEPT PATIENT SAFE AND COMFORTABLE. BED IN LOW/LOCKED POSITION, SIDERAILS UPX2, CALL LIGHT IN REACH. WILL ENDORSE BLANQUITA TO ONCOMING AM RN
[2019-06-24 06:53] LABS: CALCIUM, SERUM 8.3 mg/dL (8.5-10.1); MAGNESIUM 1.8 mg/dL (1.8-2.4); PHOSPHORUS 3.2 mg/dL (2.5-4.9); POTASSIUM 4.3 mmol/L (3.5-5.1)
--- NOTE | 2019-06-24 07:15 | NUR ---
M/S RN NOTES PATIENT AWAKE IN BED, PATIENT COOPERATIVE. NO RESPIRATORY DISTRESS, NO C/O PAIN AT THIS TIME. SKIN WARM TO TOUCH. IV ACCESS SITE INTACT AND PATENT. PATIENT'S NEEDS ATTENDED. BED ON LOWEST LOCKED POSITION, CALL LIGHT WITHIN REACH. WILL CONTINUE TO MONITOR.
[2019-06-24 08:00] VITALS: BP 110/82
[2019-06-24] MEDS: ATORVASTATIN 10 MG TABLET PO SCH (08:45)
[2019-06-24] MEDS: GABAPENTIN 100 MG CAPSULE PO SCH ×3 (08:45→17:37)
[2019-06-24] MEDS: SERTRALINE HCL 50 MG TABLET PO SCH (08:45)
[2019-06-24] MEDS: AMLODIPINE BESYLATE 5 MG TABLET PO SCH ×2 (09:00→09:18)
[2019-06-24 16:00] VITALS: BP 120/65
--- NOTE | 2019-06-24 18:47 | NUR ---
M/S RN NOTES PATIENT AWAKE IN BED, NO RESPIRATORY DISTRESS, PAIN TOLERABLE AT THIS TIME. PATIENT'S NEEDS ATTENDED. NPO STATUS AFTER MIDNIGHT. SURGERY FOR TOMORROW. BED ON LOWEST LOCKED POSITION, CALL LIGHT WITHIN REACH. WILL ENDORSE TO ONCOMING NURSE.
--- NOTE | 2019-06-24 19:15 | NUR ---
MS/RN NOTES RECEIVED PT. SITTING UP IN BED. PT. IS AWAKE, ALERT AND ORIENTED X3. BREATHING EVEN AND UNLABORED ON ROOM AIR. NO SOB, RESPIRATORY DISTRESS OR COMPLAINTS OF PAIN NOTED AT THIS TIME. PT. WITH LEFT AC 18 GAUGE IV SALINE LOCK PRESENT, PATENT AND INTACT. PT. WILL BE NPO AFTER MIDNIGHT PENDING PROCEDURE. CONSENT SIGNED AND PLACED IN PT. CHART. BED LOCKED AND IN LOWEST POSITION, SIDE RAILS UP X2, CALL LIGHT WITHIN REACH, WILL CONTINUE TO MONITOR.
[2019-06-24 20:00] VITALS: BP 139/72
[2019-06-25] VITALS (8 sets, daily range): BP systolic 94–171; BP diastolic 50–77
[2019-06-25] MEDS: BLOOD SUGAR DIAGNOSTIC 1 EACH STRIP IN SCH ×4 (06:31→23:26)
[2019-06-25] MEDS: MORPHINE SULFATE INJ 2 MG/ML DISP.SYRIN IV PRN ×2 (06:36→11:12)
[2019-06-25 06:38] LABS: BASOPHILS # (AUTO) 0.1 /CMM (0.0-0.2); EOSINOPHILS % (AUTO) 3.1 % (0.0-6.0); HEMATOCRIT 36 % (39-51); LYMPHOCYTES % (AUTO) 19.1 % (20.0-44.0); MEAN CORPUSCULAR HGB CONC 34 g/dl (31.0-36.0); MEAN CORPUSCULAR VOLUME 92 fL (80-96); MONOCYTES # (AUTO) 0.6 /CMM (0.1-1.30); MONOCYTES % (AUTO) 11.8 % (2.0-12.0); NEUTROPHILS # (AUTO) 3.5 /CMM (1.8-8.9); PLATELET COUNT (AUTO) 197 /CMM (150-450); RED BLOOD CELL COUNT(AUTO) 3.88 MIL/uL (4.5-6.0); WHITE BLOOD COUNT (AUTO) 5.4 K/uL (4.3-11.0)
--- NOTE | 2019-06-25 06:59 | NUR ---
MS/RN NOTES PT. IS LYING IN BED RESTING. BREATHING EVEN AND UNLABORED ON ROOM AIR. NO SOB, RESPIRATORY DISTRESS OR COMPLAINTS OF PAIN NOTED AT THIS TIME. PT. WITH LEFT AC 18 GAUGE IV SALINE LOCK PRESENT, PATENT AND INTACT. PT. REMAINS NPO SINCE MIDNIGHT PENDING PROCEDURE TODAY. CONSENT SIGNED AND PLACED IN PT. CHART. ALL PT. NEEDS MET. BED LOCKED AND IN LOWEST POSITION, SIDE RAILS UP X2, CALL LIGHT WITHIN REACH, WILL ENDORSE TO DAYSHIFT NURSE FOR CONTINUITY OF CARE.
[2019-06-25 07:07] LABS: CALCIUM, SERUM 8.3 mg/dL (8.5-10.1); CREATININE 0.9 mg/dL (0.6-1.3); MAGNESIUM 1.8 mg/dL (1.8-2.4); PHOSPHORUS 3.4 mg/dL (2.5-4.9); POTASSIUM 4.2 mmol/L (3.5-5.1)
--- NOTE | 2019-06-25 07:51 | NUR ---
MS RN NOTES PATIENT RESTING INSIDE ROOM, SLEEPING, AROUSABLE THROUGH VERBAL AND TACTILE STIMULI. NO ACUTE DISTRESS. DENIES ANY PAIN OR DISCOMFORT. PATIENT FOR SURGICAL PROCEDURE TODAY, NPO SINCE MIDNIGHT, PATIENT AWARE AND VERBALIZED UNDERSTANDING. SAFETY PRECAUTIONS IN PLACE. WILL CONTINUE TO MONITOR. BED LOCKED AND IN LOW POSITION. BILATERAL UPPER SIDE RAILS UP AND LOCKED. CALL LIGHT WITHIN EASY REACH
[2019-06-25] MEDS: ATORVASTATIN 10 MG TABLET PO SCH (09:00)
[2019-06-25] MEDS: AMLODIPINE BESYLATE 5 MG TABLET PO SCH (09:00)
[2019-06-25] MEDS: SERTRALINE HCL 50 MG TABLET PO SCH (09:00)
[2019-06-25] MEDS: GABAPENTIN 100 MG CAPSULE PO SCH ×3 (09:00→16:53)
--- NOTE | 2019-06-25 13:45 | NUR ---
MS RN NOTES PATIENT LEFT UNIT VIA HOSPITAL BED IN STABLE CONDITION. REPORT GIVEN TO RECEIVING RN.
[2019-06-25] MEDS ORDERED: LIDOCAINE HCL/MPF 1% 30 ML VIAL IJ ONE (14:14)
[2019-06-25] MEDS ORDERED: BUPIVACAINE MPF W/EPI 0.25% 30 ML VIAL ONE (14:14)
[2019-06-25] MEDS ORDERED: BACITRACIN 50000 UNITS/VIAL ONE (14:14)
[2019-06-25] MEDS ORDERED: FENTANYL PF 100MCG/2ML AMPUL ONE ×3 (14:15→15:41)
[2019-06-25] MEDS ORDERED: MINERAL OIL 10 ML VIAL MC ONE (14:22)
[2019-06-25] MEDS ORDERED: BACITRACIN ZINC OINT PACKET 1 EA PACKET TP ONE (15:06)
[2019-06-25] MEDS ORDERED: HYDROMORPHONE 1 MG/1 ML DISP.SYRIN ONE (15:23)
--- NOTE | 2019-06-25 16:40 | NUR ---
MS RN NOTES PATIENT BACK TO UN8IT, REPORT RECEIVED FROM JOSSELIN VANG. PATIENT AWAKE, ALERT AND ORIENTED X 4, NO ACUTE DISTRESS. DENIES ANY PAIN OR DISCOMFORT. NOTED WITH DRESSING ON UPPER LIP, DRESSING INTACT, NO BLEEDING OR DRAINAGE NOTED. WITH NEW ORDERS NOTED AND CARRIED OUT. RESUME PREVIOUS DIET ORDER. WILL CONTINUE TO MONITOR
[2019-06-25] MEDS: diphenhydrAMINE HCL 50 MG/ML VIAL IV PRN ×2 (18:06→18:12)
--- NOTE | 2019-06-25 18:11 | NUR ---
MS RN NOTES PATIENT RECEIVED ICE PACK AND BENADRYL PRN FOR COMFORT MEASURES.
[2019-06-25] MEDS: LORAZEPAM 1 MG TABLET PO PRN (18:42)
--- NOTE | 2019-06-25 18:46 | NUR ---
MS RN NOTES WITH NEW ORDERS FROM DR PURVIS FOR PSYCH EVAL IF PATIENT NEEDS TO BE ON PSYCH HOLD. ORDER NOTED AND CARRIED OUT. GPS MADE AWARE. WILL CONTINUE TO MONITOR
--- NOTE | 2019-06-25 19:03 | NUR ---
MS RN NOTES PATIENT RESTING INSIDE ROOM. AWAKE, ALERT AND ORIENTED X 4, NO ACUTE DISTRESS. DENIES ANY PAIN OR DISCOMFORT. DRESSING REMAINS INTACT ON UPPER LIP. NO ACTIVE BLEEDING OR DRAINAGE NOTED. PATIENT KEPT CLEAN, DRY AND COMFORTABLE. WILL ENDORSE TO INCOMING SHIFT FOR BLANQUITA. BED LOCKED AND IN LOW POSITION. BILATERAL UPPER SIDE RAILS UP AND LOCKED. CALL LIGHT WITHIN EASY REACH
--- NOTE | 2019-06-25 19:10 | NUR ---
MS/RN NOTES RECEIVED PT. LYING IN BED. PT. IS AWAKE, ALERT AND ORIENTED X3. BREATHING EVEN AND UNLABORED ON ROOM AIR. NO SOB, RESPIRATORY DISTRESS OR COMPLAINTS OF PAIN NOTED AT THIS TIME. PT. WITH RIGHT UPPER LIP POST-OP DRESSING PRESENT, CLEAN, DRY AND INTACT. NO ACTIVE BLEEDING OR DRAINAGE NOTED AT THIS TIME. PT. WITH LEFT AC 18 GAUGE IV SALINE LOCK PRESENT, PATENT AND INTACT. BED LOCKED AND IN LOWEST POSITION, SIDE RAILS UP X2, CALL LIGHT WITHIN REACH, WILL CONTINUE TO MONITOR.
--- NOTE | 2019-06-25 20:40 | NUR ---
MS/RN NOTES PT. REMOVED POST-OP DRESSING STATING IT WAS CAUSING PRESSURE AND HE NEEDED IT OFF. EDUCATED PT. ON RISK VS BENEFIT OF REMOVING DRESSING AND NOT PLACING A NEW DRESSING. PT. VERBALIZED UNDERSTANDING AND CONTINUES TO REFUSE. PT. STATES I CAN'T HAVE IT ON NOW, I JUST CAN'T. NO ACTIVE BLEEDING OR DRAINAGE NOTED AT THIS TIME. WILL CONTINUE TO MONITOR.
[2019-06-25] MEDS: HYDROCODONE/APAP 10/325MG 1 EA TABLET PO PRN (20:49)
--- NOTE | 2019-06-25 23:30 | NUR ---
MS/RN NOTES NOTIFIED EPIC SPOILAGE WORKER DR. BOB PT. IS REQUESTING AMBIEN TO HELP HIM SLEEP. HE STATES HE HAS USED IT BEFORE AND IT HELPS. PT. VITAL SIGNS STABLE. PER DR. BOB NEW ORDER: AMBIEN 5MG PO QHS PRN SLEEP. WILL CARRY OUT ORDER. WILL CONTINUE TO MONITOR.
[2019-06-26] MEDS ORDERED: ZOLPIDEM TARTRATE 5 MG TABLET PO PRN
[2019-06-26] MEDS: HYDROCODONE/APAP 10/325MG 1 EA TABLET PO PRN ×3 (03:43→15:21)
[2019-06-26 06:31] LABS: BASOPHILS % (AUTO) 0.8 % (0.0-2.0); EOSINOPHILS % (AUTO) 0.9 % (0.0-6.0); HEMATOCRIT 37 % (39-51); HEMOGLOBIN 12.4 g/dL (13.5-17.5); LYMPHOCYTES # (AUTO) 0.6 /CMM (0.8-4.8); LYMPHOCYTES % (AUTO) 11.1 % (20.0-44.0); MEAN CORPUSCULAR HGB CONC 34 g/dl (31.0-36.0); MEAN CORPUSCULAR VOLUME 92 fL (80-96); MONOCYTES # (AUTO) 0.5 /CMM (0.1-1.30); MONOCYTES % (AUTO) 10.4 % (2.0-12.0); NEUTROPHILS # (AUTO) 3.9 /CMM (1.8-8.9); NEUTROPHILS % (AUTO) 76.8 % (43.0-81.0); PLATELET COUNT (AUTO) 209 /CMM (150-450); WHITE BLOOD COUNT (AUTO) 5.1 K/uL (4.3-11.0)
[2019-06-26] MEDS: BLOOD SUGAR DIAGNOSTIC 1 EACH STRIP IN SCH ×2 (06:31→12:21)
[2019-06-26 06:42] LABS: CALCIUM, SERUM 7.9 mg/dL (8.5-10.1); MAGNESIUM 1.8 mg/dL (1.8-2.4); PHOSPHORUS 3.8 mg/dL (2.5-4.9); POTASSIUM 3.6 mmol/L (3.5-5.1)
--- NOTE | 2019-06-26 06:58 | NUR ---
MS/RN NOTES PT. IS SITTING UP IN BED, PT. IS AWAKE, ALERT AND ORIENTED X3. BREATHING EVEN AND UNLABORED ON ROOM AIR. NO SOB, RESPIRATORY DISTRESS OR COMPLAINTS OF PAIN NOTED AT THIS TIME. PT. WITH RIGHT UPPER LIP POST-OP DRESSING PRESENT, CLEAN, DRY AND INTACT. NO ACTIVE BLEEDING OR DRAINAGE NOTED AT THIS TIME AND THROUGHOUT SHIFT. PT. WITH LEFT AC 18 GAUGE IV SALINE LOCK PRESENT, PATENT AND INTACT. ALL PT. NEEDS MET. BED LOCKED AND IN LOWEST POSITION, SIDE RAILS UP X2, CALL LIGHT WITHIN REACH, WILL ENDORSE TO DAYSHIFT NURSE FOR CONTINUITY OF CARE.
--- NOTE | 2019-06-26 07:43 | NUR ---
M/S RN NOTES PATIENT RECEIVED RESTING IN BED A/O X3. NO SIGNS OF DISTRESS OR COMPLAINTS OF PAIN. NO SIGNS OF ANY ACTIVE BLEEDING ON POST- OP DRESSING LOCATED ON RIGHT UPPER LIP, WILL CONTINUE TO MONITOR. . BED LOW, LOCKED, UPPER RAILS UP, AND CALL LIGHT WITHIN REACH WILL CONTINUE TO MONITOR.
[2019-06-26] MEDS: GABAPENTIN 100 MG CAPSULE PO SCH ×2 (08:45→12:24)
[2019-06-26] MEDS: SERTRALINE HCL 50 MG TABLET PO SCH (08:45)
[2019-06-26 08:49] VITALS: BP 108/63
[2019-06-26] MEDS: AMLODIPINE BESYLATE 5 MG TABLET PO SCH (08:49)
[2019-06-26] MEDS: ATORVASTATIN 10 MG TABLET PO SCH (08:52)
--- NOTE | 2019-06-26 11:21 | NUR ---
WOUND CARE CONSULT: PT FOLLOWED BY PLASTIC SURGEON FOR WOUND CARE. DEFER TO SURGICAL TEAM FOR WOUND TREATMENT PLAN. PT IS AMBULATORY AND CONTINENT. WILL SEE PRN.
[2019-06-26] MEDS: INSULIN REGULAR, HUMAN 100 UNIT/ML 3 ML VIAL SQ PRN (12:24)
--- NOTE | 2019-06-26 14:32 | NUR ---
MS RN NOTES RECEIVED NOTIFICATION FROM CHARGE NURSE AND CASE MANAGEMENT REGARDING PATIENT DISCHARGE, TO BE TRANSFERRED TO [facility]. PATIENT MADE AWARE AND VERBALIZED UNDERSTANDING. OFFERED SKIN ASSESSMENT BUT PATIENT REFUSED, VERBALIZED THAT HE DOES NOT HAVE ANY WOUNDS ASIDE FROM THE ONE ON HIS LIP. RISKS AND BENEFITS EXPLAINED BUT TO NO AVAIL. PATIENT STRONGLY REFUSED. PATIENT ONLY AGREED TO HAVE WOUND TX DONE TO RIGHT UPPER LIP AND ONLY AGREED THAT SITE TO BE PHOTOGRAPHED. WILL CONTINUE TO MONITOR
--- NOTE | 2019-06-26 15:15 | NUR ---
M/S RN NOTES PLACED CALL TO [facility] ([phone]) AND GAVE REPORT TO LASHAUN VANG.
--- NOTE | 2019-06-26 17:42 | NUR ---
MS RN NOTES PATIENT FOR DISCHARGE TODAY. DISCHARGE INSTRUCTIONS AND EDUCATION PROVIDED TO PATIENT AND VERBALIZED UNDERSTANDING. ALL BELONGINGS COMPLETE ON DISCHARGE, NO REPORT OF MISSING INVENTORY. IV REMOVED WITH TIP INTACT, PRESSURE DRESSING PLACED ON SITE. PATIENT LEFT UNIT BY VIET IN STABLE CONDITION. NO ACUTE DISTRESS. PATIENT DENIES ANY PAIN OR DISCOMFORT. PATIENT CONTINUE TO REFUSE SKIN ASSESSMENT PRIOR TO DISCHARGE. NO NOTABLE SKIN BREAKDOWN ON EXTREMITIES. MD AWARE OF DISCHARGE
== END 2019-06-26 17:40 | DRG 259 ==
LOC: TELE 18:41 → MED 06-23 08:02 → UNDODISIN 06-26 14:50
PROVIDERS: ADMIT Student in an Organized Health Care Education/Training Program
PROC: 0JH606Z Insertion of Pacemaker, Dual Chamber into Chest Subcutaneous Tissue and Fascia, Open Approach (ICD-10-PCS; 2019-06-23)
PROC: 0JPT0PZ Removal of Cardiac Rhythm Related Device from Trunk Subcutaneous Tissue and Fascia, Open Approach (ICD-10-PCS; 2019-06-23)
PROC: 0CB0XZZ Excision of Upper Lip, External Approach (ICD-10-PCS; principal; 2019-06-25)
PROC: 0CX0XZZ Transfer Upper Lip, External Approach (ICD-10-PCS; 2019-06-25)
DX: T82.111A Breakdown (mechanical) of cardiac pulse generator (battery), initial encounter (principal); Y92.89 Other specified places as the place of occurrence of the external cause; Y71.2 Prosthetic and other implants, materials and accessory cardiovascular devices associated with adverse incidents; I10 Essential (primary) hypertension; E78.5 Hyperlipidemia, unspecified; J44.9 Chronic obstructive pulmonary disease, unspecified; F32.9 Major depressive disorder, single episode, unspecified; F20.9 Schizophrenia, unspecified; E11.9 Type 2 diabetes mellitus without complications; D64.9 Anemia, unspecified; G89.29 Other chronic pain; M54.5 Low back pain; Z59.0 Homelessness; G47.00 Insomnia, unspecified; F12.90 Cannabis use, unspecified, uncomplicated; C44.01 Basal cell carcinoma of skin of lip
CPT/HCPCS: 36415; 80048-TC; 82962-TC; 83735-TC; 84100-TC; 85025-TC; 85610-TC; 85730-TC; 86850-TC; 87081-TC; 88305-TC; 97116-TC; 97530-TC; G0378; J0690; J1170; J1200; J1815; J2270; J2704; J3010; J3490; Q9967

== ENCOUNTER 2019-07-02 12:00 | Outpatient (CLI) | payer MEDICARE, MEDICAID | END 2019-07-02 23:59 | LOC: WOU 12:00 | PROVIDERS: ATTEND Surgery | DX: Z48.3 Aftercare following surgery for neoplasm (principal); C44.01 Basal cell carcinoma of skin of lip; F17.200 Nicotine dependence, unspecified, uncomplicated | CPT/HCPCS: G0463 ==

== ENCOUNTER 2019-08-30 17:24 | Inpatient (IN) | payer MEDICARE, MEDICAID ==
[~2019-08-30] VITALS: Ht 185.4 cm; Wt 87.1 kg
[~2019-08-30 17:24] MED LIST changes: -ALBU6.7H IH; +ALBU6.7H9 IH
--- NOTE | 2019-08-30 17:34 | NUR ---
Patient BIB [facility] [address] from [facility] Fever/weak Was recently Dx pneumonia. resting on bed and connected to monitor.
[2019-08-30] MEDS ORDERED: HYDROCHLOROTHIAZIDE 25 MG TABLET ONE (17:53)
[2019-08-30] MEDS ORDERED: IPRATROPIUM NEB FS 0.5 MG/2.5 ML AMPUL.NEB ONE (17:58)
[2019-08-30] MEDS ORDERED: ALBUTEROL FS 2.5 MG/3 ML VIAL.NEB ONE (17:58)
[2019-08-30] MEDS ORDERED: ALBUTEROL FS 2.5 MG/3 ML VIAL.NEB NEB ONE (18:00)
[2019-08-30] MEDS ORDERED: IPRATROPIUM NEB FS 0.5 MG/2.5 ML AMPUL.NEB NEB ONE (18:00)
[2019-08-30] MEDS ORDERED: methylPREDNISolone SOD SUCC 125 MG/2ML VIAL IV ONE (18:00)
[2019-08-30] MEDS ORDERED: CEFTRIAXONE 1GM BAG (ER ONLY) 50 ML IV ONE (18:00)
[2019-08-30] MEDS ORDERED: IV NS 0.9% 1,000 ML BAG IV ONE ×3 (18:00→20:00)
[2019-08-30] MEDS ORDERED: AZITHROMYCIN 500 MG in IV D5W 250 ML IV ONE (18:00)
[2019-08-30] MEDS ORDERED: HYDROCHLOROTHIAZIDE 25 MG TABLET PO ONE (18:00)
--- NOTE | 2019-08-30 18:23 | NUR ---
IV LINE ESTABLISHED, PRESSURE TESTER AT BEDSIDE FOR BLOOD LISET
[2019-08-30 18:24] LABS: BASOPHILS # (AUTO) 0.1 /CMM (0.0-0.2); BASOPHILS % (AUTO) 0.3 % (0.0-2.0); HEMATOCRIT 42 % (39-51); HEMOGLOBIN 13.4 g/dL (13.5-17.5); LYMPHOCYTES # (AUTO) 0.4 /CMM (0.8-4.8); MEAN CORPUSCULAR HGB CONC 32 g/dl (31.0-36.0); MEAN CORPUSCULAR VOLUME 92 fL (80-96); MONOCYTES # (AUTO) 2.4 /CMM (0.1-1.30); MONOCYTES % (AUTO) 11.5 % (2.0-12.0); NEUTROPHILS # (AUTO) 17.9 /CMM (1.8-8.9); NEUTROPHILS % (AUTO) 86.2 % (43.0-81.0); PLATELET COUNT (AUTO) 271 /CMM (150-450); WHITE BLOOD COUNT (AUTO) 20.7 K/uL (4.3-11.0)
--- NOTE | 2019-08-30 18:25 | NUR ---
URINE COLLECTED AND SENT TO LAB
--- NOTE | 2019-08-30 18:25 | NUR ---
RAPID INFLUENZA SWAB COLLECTED AND SENT TO LAB
[2019-08-30] MEDS ORDERED: IBUPROFEN 600 MG TABLET PO ONE ×2 (18:30→18:37)
[2019-08-30 18:32] LABS: APPEARANCE,URINE Clear (CLEAR); BILIRUBIN,URINE SMALL (NEGATIVE); BLOOD, URINE Negative Ery/uL (NEGATIVE); COLOR,URINE Dark (YELLOW); KETONES,URINE 15 (NEGATIVE); LEUKOCYTE ESTERASE ,URINE Negative (NEGATIVE); NITRITE, URINE Negative (NEGATIVE); PROTEIN,URINE 100 mg/dl (NEGATIVE); UGLUCOSE 500 MG/DL mg/dL (NEGATIVE)
[2019-08-30 18:38] LABS: CALCIUM, SERUM 8.9 mg/dL (8.5-10.1); CARBON DIOXIDE 30 mmol/L (21-32); CHLORIDE 98 mmol/L (98-107); CREATININE 1.4 mg/dL (0.6-1.3); GLUCOSE 271 mg/dL (74-106); POTASSIUM 4.5 mmol/L (3.5-5.1); SODIUM SERUM 136 mmol/L (136-145); UREA NITROGEN, BLOOD 23 mg/dL (7-18)
[2019-08-30] MEDS ORDERED: methylPREDNISolone SOD SUCC 125 MG/2ML VIAL ONE (18:40)
[2019-08-30 18:49] LABS: ALANINE AMINOTRANSFERASE 16 U/L (12-78); ALBUMIN 2.8 g/dL (3.4-5.0); ALKALINE PHOSPHATASE 83 U/L (46-116); ASPARTATE AMINOTRANSFERASE 15 U/L (15-37); B-TYPE NATRIURETIC PEPTIDE 231 PG/ML (0-125); BILIRUBIN,DIRECT 0.2 mg/dL (0.0-0.2); BILIRUBIN,TOTAL 0.7 mg/dL (0.2-1.0); TOTAL PROTEIN, SERUM 7.1 g/dL (6.4-8.2)
[2019-08-30 18:52] LABS: BACTERIA,URINE Rare /HPF (None Seen); RBC,URINE NONE SEEN /HPF (0-2); SQUAMOUS EPITHELIAL CELL,UR Few /HPF (None Seen); WBC,URINE NONE SEEN /HPF (0-3)
--- NOTE | 2019-08-30 19:32 | NUR ---
REPORT GIVEN TO ALEX VANG FOR BLANQUITA
--- NOTE | 2019-08-30 19:36 | NUR ---
DR LISSY MURCIA FOR PANEL
--- NOTE | 2019-08-30 19:43 | NUR ---
CALLED FOR TELE BED
[2019-08-30] MEDS ORDERED: ONDANSETRON HCL/PF 4 MG/2 ML VIAL IVP PRN (20:00)
[2019-08-30] MEDS ORDERED: VANCOMYCIN 1 GM in IV D5W 250 ML IV ONE (20:00)
[2019-08-30] MEDS ORDERED: ACETAMINOPHEN 325 MG TABLET PO PRN (20:00)
--- NOTE | 2019-08-30 20:07 | NUR ---
BED ASSIGNMENT 321-2
--- NOTE | 2019-08-30 20:16 | NUR ---
report given to Leelee VANG for Julian.
[2019-08-30] MEDS ORDERED: FEE PK DOSING 1 MIN EA MC ONE (20:17)
[2019-08-30 20:30] VITALS: BP 119/62
--- NOTE | 2019-08-30 20:30 | NUR ---
HOME CARE [employer]W MEMBER NOTES RECEIVED REPORT FROM ALEX VANG FROM ER AT 2014. PATIENT TRANSFERRED FROM ED IN STABLE CONDITION VIA GURNEY; ACCOMPANIED BY 2 ER STAFF. PATIENT IS VERBALLY RESPONSIVE, A/O X 3. ON 2L NC. TELE MONITOR READING SINUS RHYTHM. NO S/S OF ACUTE RESPIRATORY DISTRESS. PATIENT DENIES SOB OR PAIN AT THIS TIME. IV ON LEFT AC DISLODGED UPON TRANSFER. IV PUMP PRESENT WITH ZITHROMAX 250 ML/HR AND NS 100 ML/HR. BELONGINGS CHECKLIST COMPLETED. MED RECONCILIATION COMPLETED. BED LOCKED, SET IN SEMI-SIFUENTES'S POSITION, SIDE RAILS X2, CALL LIGHT WITHIN REACH. WILL CONTINUE TO MONITOR.
--- NOTE | 2019-08-30 20:32 | NUR ---
SENIOR PROJECT ARCHITECT NOTES PER REPORT, SEPSIS REASSESSMENT COMPLETED IN ED.
[2019-08-30 21:14] LABS: ABG OXYGEN SATURATION 91.3 % (92.0-98.5); ABG PCO2 34.4 mmHg (35.0-45.0); ABG PH 7.436 (7.350-7.450); ABG PO2 60.1 mmHg (75.0-100.0); COHb 0.8 % (0.5-1.5); MetHb 0.3 % (0.0-1.5); O2Hb 90.3 % (94.0-97.0); SITE, ABG Left Radial; VENT MODE, BG Nasal Cannula
[2019-08-30] MEDS ORDERED: PIPERACILLIN /TAZOBACTAM 3.375 G in IV D5W 100 ML IV SCH (22:00)
[2019-08-30] MEDS: PANTOPRAZOLE 40 MG VIAL IV SCH (22:12)
[2019-08-30] MEDS: VANCOMYCIN 1 GM in IV D5W 250 ML IV SCH (22:12)
--- NOTE | 2019-08-30 23:00 | NUR ---
PURCHASING BUYER NOTES MED RECON COMPLETED IN ED. AWAITING FOR MD TO REVIEW HOME MEDS FOR CONTINUATION.
[2019-08-31] VITALS: BP 105/69
--- NOTE | 2019-08-31 00:58 | NUR ---
SUPERVISOR QUALITY CONTROL NOTES PATIENT C/O SOB. SPO2 91 ON 2L NC. NOTIFIED RT, CELINE, FOR BREATHING TREATMENT.
[2019-08-31] MEDS: ALBUTEROL FS 2.5 MG/0.5 ML VIAL.NEB NEB SCH ×6 (01:16→19:51)
[2019-08-31 04:00] VITALS: BP 110/70
--- NOTE | 2019-08-31 04:13 | NUR ---
METAL MINE INSPECTOR NOTES CALLED PHARMACY TO RESCHEDULE TIME OF ZOSYN FROM 0400 TO 0600. FIRST DOSE OF ZOSYN GIVEN AT 0011 DUE TO DISLODGED IV.
[2019-08-31] MEDS: PIPERACILLIN /TAZOBACTAM 3.375 G in IV D5W 100 ML IV SCH ×3 (06:07→17:58)
[2019-08-31 06:44] LABS: BASOPHILS % (AUTO) 0.2 % (0.0-2.0); HEMATOCRIT 42 % (39-51); HEMOGLOBIN 14.1 g/dL (13.5-17.5); LYMPHOCYTES # (AUTO) 0.3 /CMM (0.8-4.8); LYMPHOCYTES % (AUTO) 1.2 % (20.0-44.0); MEAN CORPUSCULAR HGB CONC 33 g/dl (31.0-36.0); MEAN CORPUSCULAR VOLUME 92 fL (80-96); MONOCYTES # (AUTO) 1.5 /CMM (0.1-1.30); MONOCYTES % (AUTO) 7.2 % (2.0-12.0); NEUTROPHILS # (AUTO) 19.4 /CMM (1.8-8.9); NEUTROPHILS % (AUTO) 91.4 % (43.0-81.0); PLATELET COUNT (AUTO) 257 /CMM (150-450); RED BLOOD CELL COUNT(AUTO) 4.61 MIL/uL (4.5-6.0); WHITE BLOOD COUNT (AUTO) 21.3 K/uL (4.3-11.0)
[2019-08-31 07:00] LABS: ALBUMIN 2.5 g/dL (3.4-5.0); BILIRUBIN,TOTAL 0.7 mg/dL (0.2-1.0); CALCIUM, SERUM 8.8 mg/dL (8.5-10.1); CREATININE 1.5 mg/dL (0.6-1.3); POTASSIUM 4.4 mmol/L (3.5-5.1)
[2019-08-31] MEDS: IPRATROPIUM NEB FS 0.5 MG/2.5 ML AMPUL.NEB NEB PRN ×2 (07:28→11:12)
--- NOTE | 2019-08-31 07:30 | NUR ---
AERONAUTICAL RESEARCH ENGINEER CLOSING NOTES PATIENT AWAKE IN BED. TELEMONITORING READING SINUS TACHYCARDIA, HEART RATE 133. PATIENT COMPLAINING OF SOB. RT NOTIFIED. BREATHING TREATMENT GIVEN TO PATIENT. VITAL SIGNS - BP: 166/62. SPO2 95, RR 22. BLOOD GLUCOSE 373. STILL AWAITING FOR MD TO REVIEW MED RECON. IV PRESENT ON LEFT FOREARM, SIZE 22, INTACT & PATENT, HR. BED LOCKED, LOW-SIFUENTES'S POSITION, SIDE RAILS X2, CALL LIGHT WITHIN REACH. WILL ENDORSE TO DAY SHIFT NURSE TO FOLLOW PLAN OF CARE
--- NOTE | 2019-08-31 07:43 | NUR ---
RN OPENING NOTES Received patient on a breathing treatment, a/o x3. Patient stated he was having some SOB but is better at this time by saturating better and states that he is feeling better. Patient remains on telemetry monitoring. Home medications still pending at this time. Bed at the lowest setting, call light within reach, side rails up x2.
[2019-08-31 08:00] VITALS: BP 152/84
[2019-08-31] MEDS: PANTOPRAZOLE 40 MG VIAL IV SCH (08:25)
[2019-08-31] MEDS: methylPREDNISolone SOD SUCC 40 MG/ML VIAL IV SCH ×3 (08:25→16:44)
[2019-08-31] MEDS: VANCOMYCIN 1 GM in IV D5W 250 ML IV SCH ×2 (08:36→20:55)
[2019-08-31] MEDS ORDERED: DOCUSATE SODIUM 100 MG CAPSULE PO PRN ×2 (09:00→09:30)
[2019-08-31] MEDS ORDERED: BISACODYL (5 MG) 5 MG TABLET.DR PO PRN ×2 (09:00→09:30)
[2019-08-31] MEDS: HYDROCODONE/APAP 10/325MG 1 EA TABLET PO PRN ×3 (09:23→20:53)
[2019-08-31] MEDS: MULTIVITAMINS,THERAGRAN 1 UDTAB TABLET PO SCH (09:23)
[2019-08-31] MEDS: AMLODIPINE BESYLATE 5 MG TABLET PO SCH (09:23)
[2019-08-31] MEDS: SERTRALINE HCL 50 MG TABLET PO SCH (09:24)
[2019-08-31] MEDS: ATORVASTATIN 10 MG TABLET PO SCH (09:24)
[2019-08-31] MEDS: GABAPENTIN 100 MG CAPSULE PO SCH ×3 (09:24→16:44)
[2019-08-31] MEDS ORDERED: DULO30CA2 PO (09:40)
[2019-08-31] MEDS ORDERED: INSU100V28 IJ (09:40)
[2019-08-31] MEDS ORDERED: SENN-168 PO (09:40)
[2019-08-31] MEDS ORDERED: NA P133E RC (09:40)
[2019-08-31] MEDS ORDERED: ASCO500C16 PO (09:40)
[2019-08-31] MEDS ORDERED: MAGN400O6 PO (09:40)
[2019-08-31] MEDS ORDERED: ACET325T53 PO (09:40)
[2019-08-31] MEDS ORDERED: OLAN10TA3 PO (09:40)
[2019-08-31] MEDS ORDERED: DEXTROSE 50%-WATER 50 ML DISP.SYRIN IV PRN ×2 (10:00→23:00)
[2019-08-31] MEDS ORDERED: INSULIN REGULAR, HUMAN 100 UNIT/ML 3 ML VIAL SQ PRN (10:00)
[2019-08-31] MEDS: BLOOD SUGAR DIAGNOSTIC 1 EACH STRIP VI SCH ×3 (11:35→22:03)
[2019-08-31 11:46] VITALS: BP 120/67
[2019-08-31] MEDS ORDERED: ALBUTEROL FS 2.5 MG/0.5 ML VIAL.NEB NEB PRN (13:30)
[2019-08-31 16:00] VITALS: BP 118/72
[2019-08-31] MEDS: IV NS 0.9% 1,000 ML IV PRN (17:15)
[2019-08-31] MEDS: *INSULIN REGULAR(HUMULIN R)HUM 100 UNIT/ML VIAL SQ PRN ×2 (17:26→21:13)
--- NOTE | 2019-08-31 18:46 | NUR ---
rn closing notes patient remains on 2 L o2 nasal cannula. no sob noted, patient denies pain at this time. patient remains a/o x4, and pleasant to care for. patients blood sugar trending down and is getting insulin coverage now. L FA 22 with NS @ 100 ml per hour. bed at the lowest setting, call light within reach, side rails up x2. will give report to noc rn for alisson bedside.
--- NOTE | 2019-08-31 19:30 | NUR ---
MS RN OPENING NOTES PATIENT AWAKE AND RESTING IN BED. ON 2L NC. NO S/S OF ACUTE RESPIRATORY DISTRESS. PATIENT DENIES SOB OR PAIN AT THIS TIME. IV PRESENT ON LEFT FOREARM, SIZE 22, INTACT & PATENT, WITH NS RUNNING AT 100ML/HR. BED LOCKED, SEMI-SIFUENTES'S POSITION, SIDE RAILS X2, CALL LIGHT WITHIN REACH. WILL CONTINUE TO MONITOR.
[2019-08-31 20:00] VITALS: BP 119/70
[2019-08-31] MEDS: TRAZODONE 50 MG TABLET PO SCH (21:03)
--- NOTE | 2019-08-31 21:15 | NUR ---
ORTHOPEDIC ASSISTANT NOTES PATIENT'S BS 411. ADMINISTERED 10 UNITS OF REGULAR INSULIN PER SLIDING SCALE. WILL REASSESS BS.
--- NOTE | 2019-08-31 22:20 | NUR ---
MS RN NOTES DERDERIAN CONTACTED ABOUT ELEVATED BS AT 413. PER MD, GIVE A ONE TIME ORDER OF 10 UNITS OF REGULAR INSULIN AND SWITCH TO AN AGGRESSIVE SLIDING SCALE.
[2019-08-31] MEDS ORDERED: INSULIN REGULAR, HUMAN 100 UNIT/ML 3 ML VIAL SQ ONE ×2 (22:35→22:40)
[2019-08-31] MEDS: LORAZEPAM 1 MG TABLET PO PRN (23:37)
[2019-09-01] MEDS: ALBUTEROL FS 2.5 MG/0.5 ML VIAL.NEB NEB SCH ×7 (00:13→22:59)
[2019-09-01] MEDS: PIPERACILLIN /TAZOBACTAM 3.375 G in IV D5W 100 ML IV SCH ×2 (00:26→06:21)
[2019-09-01 04:00] VITALS: BP 108/45
[2019-09-01] MEDS: VANCOMYCIN 1 GM in IV D5W 250 ML IV SCH ×2 (05:00→12:46)
[2019-09-01] MEDS: HYDROCODONE/APAP 10/325MG 1 EA TABLET PO PRN ×3 (06:22→17:49)
--- NOTE | 2019-09-01 07:00 | NUR ---
MS RN NOTES RT CALLED FOR BREATHING TREATMENT. PATIENT SOB AND COUGHING.
[2019-09-01] MEDS: BLOOD SUGAR DIAGNOSTIC 1 EACH STRIP IN SCH ×4 (07:04→21:11)
[2019-09-01] MEDS: INSULIN REGULAR, HUMAN 100 UNIT/ML 3 ML VIAL SQ PRN ×3 (07:06→17:37)
--- NOTE | 2019-09-01 07:27 | NUR ---
MS RN CLOSING NOTES PATIENT AWAKE IN BED. A/O X 3. ON 4L NC. PATIENT DENIES SOB. PRODUCTIVE COUGH PRESENT. IV PRESENT ON LEFT FOREARM, SIZE 22, INTACT & PATENT, WITH IVPB ZOSYN RUNNING. BLOOD SUGAR 306; ADMINISTERED 16 UNITS OF REGULAR INSULIN PER SLIDING SCALE. BED LOCKED, HIGH-SIFUENTES'S POSITION, SIDE RAILS X2, CALL LIGHT WITHIN REACH. WILL ENDORSE TO DAY SHIFT NURSE TO FOLLOW PLAN OF CARE.
--- NOTE | 2019-09-01 07:35 | NUR ---
RN OPENING NOTES Patient received on 2L nasal cannula, no sob noted, patient denies pain at this time. Patient remains a/o x3, and remains ambulatory. Sliding scale changed to aggressive and gets insulin coverage regularly. Bed at the lowest setting, call light within reach, side rails up x2.
[2019-09-01 08:00] VITALS: BP 116/66
[2019-09-01] MEDS ORDERED: ACETAMINOPHEN 325 MG TABLET PO PRN (08:30)
[2019-09-01] MEDS ORDERED: NA PHOS,M-B/NA PHOS,DI-BA 1 EA ENEMA RC PRN (08:30)
[2019-09-01] MEDS ORDERED: INSULIN REGULAR, HUMAN 100 UNIT/ML 3 ML VIAL IJ SCH (08:30)
[2019-09-01] MEDS ORDERED: MAGNESIUM HYDROXIDE 30 ML UDC PO PRN (08:30)
[2019-09-01] MEDS: OLANZAPINE 10 MG TABLET PO SCH ×2 (08:32→17:47)
[2019-09-01] MEDS: GABAPENTIN 100 MG CAPSULE PO SCH ×3 (08:33→17:47)
[2019-09-01] MEDS: ATORVASTATIN 10 MG TABLET PO SCH (08:33)
[2019-09-01] MEDS: AMLODIPINE BESYLATE 5 MG TABLET PO SCH (08:34)
[2019-09-01] MEDS: SERTRALINE HCL 50 MG TABLET PO SCH (08:34)
[2019-09-01] MEDS: PANTOPRAZOLE 40 MG VIAL IV SCH (08:36)
[2019-09-01] MEDS: ASCORBIC ACID 500 MG TABLET PO SCH (08:36)
[2019-09-01] MEDS: DULOXETINE HCL 30 MG CAPSULE.DR PO SCH (08:36)
[2019-09-01] MEDS: MULTIVITAMINS,THERAGRAN 1 UDTAB TABLET PO SCH (08:36)
[2019-09-01] MEDS: methylPREDNISolone SOD SUCC 40 MG/ML VIAL IV SCH ×3 (08:36→17:47)
[2019-09-01 08:44] LABS: BASOPHILS % (AUTO) 0.1 % (0.0-2.0); HEMATOCRIT 36 % (39-51); HEMOGLOBIN 11.7 g/dL (13.5-17.5); LYMPHOCYTES # (AUTO) 0.5 /CMM (0.8-4.8); LYMPHOCYTES % (AUTO) 2.2 % (20.0-44.0); MEAN CORPUSCULAR HGB CONC 33 g/dl (31.0-36.0); MEAN CORPUSCULAR VOLUME 91 fL (80-96); MONOCYTES % (AUTO) 5.1 % (2.0-12.0); NEUTROPHILS # (AUTO) 18.8 /CMM (1.8-8.9); NEUTROPHILS % (AUTO) 92.6 % (43.0-81.0); PLATELET COUNT (AUTO) 275 /CMM (150-450); RED BLOOD CELL COUNT(AUTO) 3.95 MIL/uL (4.5-6.0); WHITE BLOOD COUNT (AUTO) 20.3 K/uL (4.3-11.0)
[2019-09-01 08:45] LABS: CALCIUM, SERUM 8.9 mg/dL (8.5-10.1); CREATININE 1.1 mg/dL (0.6-1.3); POTASSIUM 4.1 mmol/L (3.5-5.1)
[2019-09-01] MEDS ORDERED: PIPERACILLIN /TAZOBACTAM 3.375 G in IV D5W 50 ML IV SCH (12:00)
[2019-09-01] MEDS ORDERED: AZITHROMYCIN 500 MG in IV D5W 250 ML IV SCH (14:30)
[2019-09-01 16:00] VITALS: BP 127/69
[2019-09-01] MEDS: CEFTRIAXONE 1 G in IV D5W 50 ML IV SCH (17:31)
--- NOTE | 2019-09-01 18:56 | NUR ---
RN CLOSING NOTES Patient remains on 2l nasal cannula. no sob noted, patient denies pain at this time. Insulin coverage given and blood sugar is trending down. R FA 22 with 100 ml per hour NS flowing. Denture adhesive awaiting from central supply. bed at the lowest setting, call light within reach, side rails up x2. will give report to noc rn for alisson bedside.
[2019-09-01 19:30] VITALS: BP 128/69
--- NOTE | 2019-09-01 19:52 | NUR ---
MS RN NOTES PATIENT IN BED, AWAKE, ALERT AND ORIENTED X 4. BREATHING EVEN AND UNLABORED ON NC 2L. DENIES ACUTE RESPIRATORY DISTRESS, NO ACUTE PAIN. IV ON R FOREARM 22G RUNNING NS AT 100ML/HR. SAFETY PRECAUTION IN PLACE. BED IN LOWEST POSITION LOCKED AND CALL LIGHT KEPT WITHIN REACH. WILL CONTINUE TO MONITOR.
[2019-09-01 20:00] VITALS: BP 128/69
[2019-09-01] MEDS: TRAZODONE 50 MG TABLET PO SCH (21:12)
[2019-09-01] MEDS: SENNOSIDES 8.6 MG TABLET PO SCH (21:12)
[2019-09-01] MEDS: LORAZEPAM 1 MG TABLET PO PRN (21:14)
[2019-09-01] MEDS: *INSULIN REGULAR(HUMULIN R)HUM 100 UNIT/ML VIAL SQ PRN (21:51)
[2019-09-02] MEDS: ALBUTEROL FS 2.5 MG/0.5 ML VIAL.NEB NEB SCH ×6 (03:26→23:30)
[2019-09-02] MEDS: HYDROCODONE/APAP 10/325MG 1 EA TABLET PO PRN ×3 (03:59→17:12)
--- NOTE | 2019-09-02 04:00 | NUR ---
MS RN NOTES PATIENT COMPLAINING OF PAIN 03/07. GIVEN NORCO PRN AT 0359. WILL CONTINUE TO MONITOR.
[2019-09-02] MEDS: BLOOD SUGAR DIAGNOSTIC 1 EACH STRIP IN SCH ×4 (06:44→22:09)
[2019-09-02] MEDS: INSULIN REGULAR, HUMAN 100 UNIT/ML 3 ML VIAL SQ PRN ×3 (06:46→17:09)
--- NOTE | 2019-09-02 06:53 | NUR ---
MS RN NOTES PATIENT IN BED, ASLEEP, ALERT AND ORIENTED X 4. BREATHING EVEN AND UNLABORED ON NC 2L. DENIES ACUTE RESPIRATORY DISTRESS, NO ACUTE PAIN. IV ON R FOREARM 22G RUNNING NS AT 100ML/HR. IV SHOWS NO SIGNS OF INFILTRATION, NO REDNESS. ALL DUE MEDICATION GIVEN. SAFETY PRECAUTION IN PLACE. BED IN LOWEST POSITION LOCKED AND CALL LIGHT KEPT WITHIN REACH. WILL ENDORSE TO ONCOMING NURSE.
[2019-09-02 07:01] LABS: HEMATOCRIT 35 % (39-51); HEMOGLOBIN 11.4 g/dL (13.5-17.5); LYMPHOCYTES # (AUTO) 0.4 /CMM (0.8-4.8); MEAN CORPUSCULAR HGB CONC 33 g/dl (31.0-36.0); MEAN CORPUSCULAR VOLUME 91 fL (80-96); MONOCYTES # (AUTO) 0.9 /CMM (0.1-1.30); MONOCYTES % (AUTO) 4.8 % (2.0-12.0); NEUTROPHILS % (AUTO) 93.2 % (43.0-81.0); PLATELET COUNT (AUTO) 286 /CMM (150-450); RED BLOOD CELL COUNT(AUTO) 3.82 MIL/uL (4.5-6.0); WHITE BLOOD COUNT (AUTO) 19.3 K/uL (4.3-11.0)
--- NOTE | 2019-09-02 07:26 | NUR ---
MS RN OPENING NOTE RECEIVED PATIENT IN BED SLEEPING COMFORTABLY. PATIENT IN NO ACUTE DISTRESS. NO SOB NOTED. PATIENT BREATHING IS EVEN AND UNLABORED. NO FACIAL GRIMACING NOTED. PATIENT BED IS LOCKED AND IN LOWEST POSITION. CALL LIGHT WITHIN REACH. WILL CONTINUE TO MONITOR.
[2019-09-02 07:34] LABS: CALCIUM, SERUM 8.5 mg/dL (8.5-10.1); CREATININE 1.2 mg/dL (0.6-1.3); POTASSIUM 4.3 mmol/L (3.5-5.1)
--- NOTE | 2019-09-02 07:57 | NUR ---
MS RN NOTE SPOKE WITH DR. BARBER ABOUT BLOOD GLUCOSE CRITICAL LAB VALUE 453. PER MD CONTINUE TO MONITOR PATIENT AND PROVIDE COVERAGE PER PROTOCOL.
[2019-09-02 08:00] VITALS: BP 140/80
[2019-09-02] MEDS: NICOTINE PATCH (21MG) 21 MG PATCH.TD24 TD SCH (08:50)
[2019-09-02] MEDS: ATORVASTATIN 10 MG TABLET PO SCH (08:51)
[2019-09-02] MEDS: GABAPENTIN 100 MG CAPSULE PO SCH ×3 (08:51→17:12)
[2019-09-02] MEDS: PANTOPRAZOLE 40 MG VIAL IV SCH (08:52)
[2019-09-02] MEDS: methylPREDNISolone SOD SUCC 40 MG/ML VIAL IV SCH ×3 (08:52→17:12)
[2019-09-02] MEDS: DULOXETINE HCL 30 MG CAPSULE.DR PO SCH (08:52)
[2019-09-02] MEDS: AMLODIPINE BESYLATE 5 MG TABLET PO SCH (08:52)
[2019-09-02] MEDS: ASCORBIC ACID 500 MG TABLET PO SCH (08:53)
[2019-09-02] MEDS: SERTRALINE HCL 50 MG TABLET PO SCH (08:53)
[2019-09-02] MEDS: MULTIVITAMINS,THERAGRAN 1 UDTAB TABLET PO SCH (08:53)
[2019-09-02] MEDS: OLANZAPINE 10 MG TABLET PO SCH ×2 (08:53→17:12)
--- NOTE | 2019-09-02 13:57 | NUR ---
MS RN NOTE REPORTED CHEST XRAY RESULTS TO DR. BARBER. PER MD NO NEW ORDERS AT THIS TIME. WILL CONTINUE TO MONITOR.
[2019-09-02] MEDS: CEFTRIAXONE 1 G in IV D5W 50 ML IV SCH (14:03)
[2019-09-02] MEDS: AZITHROMYCIN 500 MG in IV D5W 250 ML IV SCH (14:48)
[2019-09-02] MEDS: IV NS 0.9% 1,000 ML IV PRN (14:48)
[2019-09-02 16:00] VITALS: BP 126/74
--- NOTE | 2019-09-02 18:48 | NUR ---
MS RN CLOSING NOTE PATIENT IN BED RESTING COMFORTABLY. PATIENT IN NO ACUTE DISTRESS. NO SOB NOTED. PATIENT BREATHING IS EVEN AND UNLABORED. NO FACIAL GRIMACING NOTED. PATIENT KEPT CLEAN AND DRY THROUGHOUT SHIFT. NEEDS AND CONCERNS ADDRESSED. PATIENT BED IS LOCKED AND IN LOWEST POSITION. CALL LIGHT WITHIN REACH. WILL ENDORSE CARE TO PM SHIFT FOR BLANQUITA.
--- NOTE | 2019-09-02 19:24 | NUR ---
MS RN NOTES PATIENT IN BED, AWAKE, ALERT AND ORIENTED X 4. BREATHING EVEN AND UNLABORED ON NC 2L. DENIES ACUTE RESPIRATORY DISTRESS, NO ACUTE PAIN. IV ON R FOREARM 22G RUNNING NS AT 100ML/HR. SHOWS NO SIGNS OF INFILTRATION, NO REDNESS. SAFETY PRECAUTION IN PLACE. BED IN LOWEST POSITION LOCKED AND CALL LIGHT KEPT WITHIN REACH. WILL CONTINUE TO MONITOR.
[2019-09-02 19:30] VITALS: BP 118/79
[2019-09-02 21:08] VITALS: BP 126/77
[2019-09-02] MEDS: TRAZODONE 50 MG TABLET PO SCH (21:55)
[2019-09-02] MEDS: LORAZEPAM 1 MG TABLET PO PRN (21:55)
[2019-09-02] MEDS: *INSULIN REGULAR(HUMULIN R)HUM 100 UNIT/ML VIAL SQ PRN (21:57)
[2019-09-02] MEDS: SENNOSIDES 8.6 MG TABLET PO SCH (22:00)
[2019-09-03] MEDS: ALBUTEROL FS 2.5 MG/0.5 ML VIAL.NEB NEB SCH ×3 (03:30→13:13)
[2019-09-03] MEDS: IV NS 0.9% 1,000 ML IV PRN (05:41)
--- NOTE | 2019-09-03 06:37 | NUR ---
MS RN NOTES PATIENT BLOOD SUGAR TEST REPEATED PER PROTOCOL FOR INITIAL CRITICAL VALUE OF 422. REPEATED TWICE OF 264 AND 286. INSULIN COVERAGE GIVEN. WILL CONTINUE TO MONITOR.
[2019-09-03] MEDS: BLOOD SUGAR DIAGNOSTIC 1 EACH STRIP IN SCH ×2 (06:40→13:10)
[2019-09-03] MEDS: INSULIN REGULAR, HUMAN 100 UNIT/ML 3 ML VIAL SQ PRN ×2 (06:41→13:30)
--- NOTE | 2019-09-03 06:48 | NUR ---
MS RN NOTES PATIENT IN BED, ASLEEP, ALERT AND ORIENTED X 4. BREATHING EVEN AND UNLABORED ON NC 2L. DENIES ACUTE RESPIRATORY DISTRESS, NO ACUTE PAIN. IV ON R FOREARM 22G RUNNING NS AT 100ML/HR. SHOWS NO SIGNS OF INFILTRATION, NO REDNESS. ALL DUE MEDICATIONS GIVEN. ALL NEEDS ATTENDED TO. SAFETY PRECAUTION IN PLACE. BED IN LOWEST POSITION LOCKED AND CALL LIGHT KEPT WITHIN REACH. WILL ENDORSE TO ONCOMING NURSE.
[2019-09-03 07:30] LABS: BASOPHILS % (AUTO) 0.3 % (0.0-2.0); HEMATOCRIT 36 % (39-51); HEMOGLOBIN 11.6 g/dL (13.5-17.5); LYMPHOCYTES # (AUTO) 0.8 /CMM (0.8-4.8); LYMPHOCYTES % (AUTO) 6.4 % (20.0-44.0); MEAN CORPUSCULAR HGB CONC 32 g/dl (31.0-36.0); MEAN CORPUSCULAR VOLUME 92 fL (80-96); MONOCYTES # (AUTO) 0.8 /CMM (0.1-1.30); MONOCYTES % (AUTO) 6.5 % (2.0-12.0); NEUTROPHILS # (AUTO) 10.8 /CMM (1.8-8.9); NEUTROPHILS % (AUTO) 86.8 % (43.0-81.0); PLATELET COUNT (AUTO) 315 /CMM (150-450); RED BLOOD CELL COUNT(AUTO) 3.93 MIL/uL (4.5-6.0); WHITE BLOOD COUNT (AUTO) 12.4 K/uL (4.3-11.0)
--- NOTE | 2019-09-03 07:30 | NUR ---
M/S RN NOTES PATIENT RESTING IN BED, NO RESPIRATORY DISTRESS, ON O2 AT 2L VIA NASAL CANULA. PATIENT IN NO C/O PAIN AT THIS TIME. PATIENT'S IV INTACT AND PATENT. BED ON LOWEST LOCKED POSITION, CALL LIGHT WITHIN REACH. WILL CONTINUE TO MONITOR.
[2019-09-03 07:40] LABS: CALCIUM, SERUM 8.3 mg/dL (8.5-10.1); POTASSIUM 4.4 mmol/L (3.5-5.1)
[2019-09-03 08:00] VITALS: BP 116/72
[2019-09-03] MEDS: MULTIVITAMINS,THERAGRAN 1 UDTAB TABLET PO SCH (09:01)
[2019-09-03] MEDS: GABAPENTIN 100 MG CAPSULE PO SCH ×2 (09:01→13:11)
[2019-09-03] MEDS: PANTOPRAZOLE 40 MG VIAL IV SCH (09:01)
[2019-09-03] MEDS: methylPREDNISolone SOD SUCC 40 MG/ML VIAL IV SCH ×2 (09:01→13:11)
[2019-09-03] MEDS: OLANZAPINE 10 MG TABLET PO SCH (09:01)
[2019-09-03] MEDS: NICOTINE PATCH (21MG) 21 MG PATCH.TD24 TD SCH (09:01)
[2019-09-03 09:02] VITALS: BP 116/72
[2019-09-03] MEDS: HYDROCODONE/APAP 10/325MG 1 EA TABLET PO PRN (09:02)
[2019-09-03] MEDS: AMLODIPINE BESYLATE 5 MG TABLET PO SCH (09:02)
[2019-09-03] MEDS: SERTRALINE HCL 50 MG TABLET PO SCH (09:02)
[2019-09-03] MEDS: ASCORBIC ACID 500 MG TABLET PO SCH (09:02)
[2019-09-03] MEDS: DULOXETINE HCL 30 MG CAPSULE.DR PO SCH (09:02)
[2019-09-03] MEDS: ATORVASTATIN 10 MG TABLET PO SCH (09:05)
[2019-09-03] MEDS ORDERED: AZIT500T4 PO (09:58)
[2019-09-03] MEDS ORDERED: CEFT1VIA15 IV (09:58)
[2019-09-03] MEDS: AZITHROMYCIN 500 MG in IV D5W 250 ML IV SCH ×2 (14:33→14:36)
--- NOTE | 2019-09-03 14:53 | NUR ---
M/S RN NOTES PATIENT DISCHARGED IN STABLE CONDITION, VSS, NO RESPIRATORY DISTRESS, NO C/O PAIN AT THIS TIME. PATIENT GIVEN DISCHARGE INSTRUCTIONS, VERBALIZED UNDERSTANDING. REPORT GIVEN TO CIERA WRIGHT AT [facility], PATIENT'S ROOM #70B. PATIENT'S SKIN ASSESSED, NO SKIN BREAKDOWN, SKIN WARM TO TOUCH. IV ON THE RT FOREARM #22G INTACT AND PATENT, NO REDNESS OR INFILTRATION NOTED. BELONGINGS ACCOUNTED FOR AND SIGNED. PATIENT'S NEEDS ATTENDED. PATIENT LEFT VIA GURNEY WITH PARAMEDICS.
== END 2019-09-03 14:50 | DRG 871 ==
LOC: ER 17:30 → TELE 20:10 → MED 08-31 10:18
PROVIDERS: ADMIT Internal Medicine; ATTEND Family Medicine
DX: A41.9 Sepsis, unspecified organism (principal); G93.41 Metabolic encephalopathy; N17.0 Acute kidney failure with tubular necrosis; I50.33 Acute on chronic diastolic (congestive) heart failure; J15.9 Unspecified bacterial pneumonia; J44.1 Chronic obstructive pulmonary disease with (acute) exacerbation; J44.0 Chronic obstructive pulmonary disease with (acute) lower respiratory infection; E44.0 Moderate protein-calorie malnutrition; E87.2 Acidosis; E78.5 Hyperlipidemia, unspecified; Z85.828 Personal history of other malignant neoplasm of skin; I11.0 Hypertensive heart disease with heart failure; Z59.0 Homelessness; Y95 Nosocomial condition; F03.90 Unspecified dementia, unspecified severity, without behavioral disturbance, psychotic disturbance, mood disturbance, and anxiety; G89.29 Other chronic pain; Z91.81 History of falling; F31.9 Bipolar disorder, unspecified; E11.9 Type 2 diabetes mellitus without complications; E86.0 Dehydration; J20.9 Acute bronchitis, unspecified; K40.90 Unilateral inguinal hernia, without obstruction or gangrene, not specified as recurrent; Z79.51 Long term (current) use of inhaled steroids; Z79.899 Other long term (current) drug therapy; F19.10 Other psychoactive substance abuse, uncomplicated
CPT/HCPCS: 36415; 36600; 71045-TC; 71046; 80048-TC; 80053-TC; 80076-TC; 80202-TC; 81000-TC; 82803-TC; 82962-TC; 83605-TC; 83880; 84484-TC; 85025-TC; 87040-TC; 87081-TC; 87086-TC; 94640-TC; 94799-TC; C9113; G0378; J0456; J0696; J1815; J2543; J2920; J2930; J3370; J7030; J7060

== ENCOUNTER 2020-07-08 11:21 | Outpatient (CLI) | payer MEDICARE, MEDICAID ==
[~2020-07-08 11:21] MED LIST changes: +ACET325T53 PO; -ALBU6.7H9 IH; +AMLO-212 PO; -AMLO5TAB9 PO; +ASCO500C17 PO; -ATOR10TA PO; +AZIT500T4 PO; +CEFT1VIA15 IV; -DOCU-141 PO; +DULO30CA2 PO; -GABA-532 PO; +INSU100V28 IJ; -LIDO28.310 TP; -LORA1TAB PO; +MAGN400O6 PO; -MULT-1168 PO; +NA P133E RC; +OLAN10TA3 PO; +SENN-261 PO; -TRAZ-214 PO; +TRAZ-257 PO
== END 2020-07-08 23:59 | disposition home or self-care (01) ==
LOC: LAB 11:21
PROVIDERS: ATTEND Neurological Surgery
DX: Z75.3 Unavailability and inaccessibility of health-care facilities (principal)

== ENCOUNTER 2021-05-07 12:35 | Outpatient (CLI) | payer MEDICARE, OTHER ==
[2021-05-07] MEDS ORDERED: LIDOCAINE 2%-EPI 1:100,000 30 ML VIAL ONE (13:13)
[2021-05-07] MEDS ORDERED: BACI/NEOM/POLY B OINT PKT 1 UDPKT PACKET ONE (13:30)
== END 2021-05-07 23:59 | disposition home or self-care (01) ==
LOC: WOU 12:35
PROVIDERS: ATTEND Surgery
DX: C44.319 Basal cell carcinoma of skin of other parts of face (principal); M54.9 Dorsalgia, unspecified
CPT/HCPCS: 11104; 88305; J3490

== ENCOUNTER 2021-06-11 12:45 | Outpatient (CLI) | payer MEDICARE, OTHER ==
[2021-06-11] MEDS ORDERED: LIDOCAINE 2%-EPI 1:100,000 30 ML VIAL ONE (13:19)
[2021-06-11] MEDS ORDERED: BACI/NEOM/POLY B OINT PKT 1 UDPKT PACKET ONE (13:47)
== END 2021-06-11 23:59 | disposition home or self-care (01) ==
LOC: WOU 12:45
PROVIDERS: ATTEND Surgery
DX: C44.319 Basal cell carcinoma of skin of other parts of face (principal); M54.9 Dorsalgia, unspecified
CPT/HCPCS: 11643; 13132; 88305; J3490

== ENCOUNTER → 2021-08-06 | Outpatient (CLI) | payer MEDICARE, OTHER | LOC: WOU 12:30 | PROVIDERS: ATTEND Surgery | DX: Z48.3 Aftercare following surgery for neoplasm (principal); C44.319 Basal cell carcinoma of skin of other parts of face; M54.9 Dorsalgia, unspecified; E11.9 Type 2 diabetes mellitus without complications; Z79.4 Long term (current) use of insulin | CPT/HCPCS: G0463 ==

== ENCOUNTER 2023-03-22 15:11 | Emergency (ER) | payer MEDICARE, OTHER ==
[~2023-03-22] VITALS: Ht 177.8 cm; Wt 78.5 kg
--- NOTE | 2023-03-22 16:00 | NUR ---
PATIENT BIBS FOR SELF REPORTED CONFUSION AND DIFFICULTY FORMING SENTENCES. A/O X 3, ABLE TO MAKE NEEDS KNOWN, TOLERATING WELL ON ROOM AIR.
[2023-03-22 16:14] LABS: BASOPHILS # (AUTO) 0.1 K/uL (0.0-0.2); BASOPHILS % (AUTO) 1.4 % (0.0-2.0); EOSINOPHILS % (AUTO) 2.1 % (0.0-6.0); HEMATOCRIT 42 % (39-51); HEMOGLOBIN 13.8 g/dL (13.5-17.5); LYMPHOCYTES # (AUTO) 2.2 K/uL (0.8-4.8); MEAN CORPUSCULAR HGB CONC 33 g/dl (31.0-36.0); MEAN CORPUSCULAR VOLUME 92 fL (80-96); MONOCYTES # (AUTO) 0.6 K/uL (0.1-1.30); MONOCYTES % (AUTO) 7.1 % (2.0-12.0); NEUTROPHILS # (AUTO) 4.8 K/uL (1.8-8.9); NEUTROPHILS % (AUTO) 61.4 % (43.0-81.0); PLATELET COUNT (AUTO) 460 K/uL (150-450); RED BLOOD CELL COUNT(AUTO) 4.55 MIL/uL (4.5-6.0); WHITE BLOOD COUNT (AUTO) 7.8 K/uL (4.3-11.0)
[2023-03-22 16:31] LABS: SERUM AMMONIA 17 umol/L (11-32)
[2023-03-22 16:32] LABS: CALCIUM, SERUM 9.4 mg/dL (8.5-10.1); CARBON DIOXIDE 28 mmol/L (21-32); CHLORIDE 104 mmol/L (98-107); GLUCOSE 117 mg/dL (74-106); POTASSIUM 4.6 mmol/L (3.5-5.1); SODIUM SERUM 141 mmol/L (136-145); UREA NITROGEN, BLOOD 11 mg/dL (7-18)
[2023-03-22 16:38] LABS: ALANINE AMINOTRANSFERASE 20 U/L (12-78); ALBUMIN 3.6 g/dL (3.4-5.0); ALKALINE PHOSPHATASE 56 U/L (46-116); ASPARTATE AMINOTRANSFERASE 16 U/L (15-37); BILIRUBIN,DIRECT 0.1 mg/dL (0.0-0.2); BILIRUBIN,TOTAL 0.3 mg/dL (0.2-1.0); TOTAL PROTEIN, SERUM 7.4 g/dL (6.4-8.2)
[2023-03-22 16:44] LABS: THYROID STIMULATING HORMONE 2.172 uIU/mL (0.358-3.74)
--- NOTE | 2023-03-22 18:25 | NUR ---
SET UP TRANSPORTATION WITH [facility], ETA 75-90 MINUTES
--- NOTE | 2023-03-22 18:27 | NUR ---
IV removed. Catheter intact and site benign. Pressure and 4x4 applied to site. No bleeding noted.
--- NOTE | 2023-03-22 19:15 | NUR ---
Patient discharged to home in stable condition. Written and verbal after care instructions given. Patient verbalizes understanding of instruction.
[2023-03-22 22:22] VITALS: BP 122/74; TEMP 98.3; O2SAT 0
== END 2023-03-22 22:22 | disposition home or self-care (01) ==
LOC: ER 15:18
DX: G93.40 Encephalopathy, unspecified (principal); F03.90 Unspecified dementia, unspecified severity, without behavioral disturbance, psychotic disturbance, mood disturbance, and anxiety; I10 Essential (primary) hypertension; E11.9 Type 2 diabetes mellitus without complications; G89.29 Other chronic pain; Z79.899 Other long term (current) drug therapy
CPT/HCPCS: 36415; 70450-TC; 71045-TC; 80048-TC; 80076-TC; 82140-TC; 84443-TC; 84484-TC; 85025-TC

== ENCOUNTER 2024-01-11 09:50 | Inpatient (IN) | payer MEDICARE, OTHER ==
[~2024-01-11] VITALS: Ht 193 cm; Wt 95.3 kg
[2024-01-11] MEDS ORDERED: INSU100V7 SQ (10:31)
[2024-01-11] MEDS ORDERED: LOSA50TA3 PO (10:31)
[2024-01-11] MEDS ORDERED: METF-440 PO (10:31)
[2024-01-11] MEDS ORDERED: GABA-536 PO (10:31)
[2024-01-11] MEDS ORDERED: LORA-259 PO (10:31)
[2024-01-11] MEDS ORDERED: NEURIVA PO (10:31)
[2024-01-11] MEDS ORDERED: INSU100V30 SQ (10:31)
[2024-01-11] MEDS ORDERED: OLAN5TAB3 PO (10:31)
[2024-01-11] MEDS ORDERED: FERR325T28 PO (10:31)
[2024-01-11] MEDS ORDERED: FLUT1DIS3 IH (10:31)
[2024-01-11] MEDS ORDERED: TIOT18CA3 IH (10:31)
[2024-01-11] MEDS ORDERED: SERT25TA PO (10:31)
[2024-01-11] MEDS ORDERED: DULO60CA45 PO (10:31)
[2024-01-11] MEDS ORDERED: MULT-213 PO (10:31)
[2024-01-11 10:46] LABS: BASOPHILS % (AUTO) 0.4 % (0.0-2.0); EOSINOPHILS # (AUTO) 0.2 K/uL (0.0-0.7); EOSINOPHILS % (AUTO) 2.8 % (0.0-6.0); HEMATOCRIT 41 % (39-51); HEMOGLOBIN 13.8 g/dL (13.5-17.5); LYMPHOCYTES # (AUTO) 1.6 K/uL (0.8-4.8); LYMPHOCYTES % (AUTO) 22.4 % (20.0-44.0); MEAN CORPUSCULAR HEMOGLOBIN 30 PG (26.0-33.0); MEAN CORPUSCULAR HGB CONC 33 g/dl (31.0-36.0); MEAN CORPUSCULAR VOLUME 90 fL (80-96); MONOCYTES # (AUTO) 0.4 K/uL (0.1-1.30); MONOCYTES % (AUTO) 5.9 % (2.0-12.0); NEUTROPHILS % (AUTO) 68.5 % (43.0-81.0); PLATELET COUNT (AUTO) 302 K/uL (150-450); RED BLOOD CELL COUNT(AUTO) 4.58 MIL/uL (4.5-6.0); RED CELL DISTRIBUTION WIDTH 13.3 % (11.5-15.0); WHITE BLOOD COUNT (AUTO) 7.3 K/uL (4.3-11.0)
[2024-01-11 11:00] LABS: CALCIUM, SERUM 8.3 mg/dL (8.5-10.1); CARBON DIOXIDE 25 mmol/L (21-32); CHLORIDE 104 mmol/L (98-107); CREATININE 1.1 mg/dL (0.6-1.3); GLUCOSE 217 mg/dL (74-106); POTASSIUM 4.2 mmol/L (3.5-5.1); SODIUM SERUM 135 mmol/L (136-145); UREA NITROGEN, BLOOD 8 mg/dL (7-18)
[2024-01-11] MEDS ORDERED: MORPHINE SULFATE INJ 2 MG/ML DISP.SYRIN IV PRN (11:00)
[2024-01-11] MEDS ORDERED: DEXTROSE 50%-WATER 50 ML DISP.SYRIN IV PRN (11:00)
[2024-01-11] MEDS ORDERED: ALBUTEROL FS 2.5 MG/0.5 ML VIAL.NEB NEB PRN (11:00)
[2024-01-11] MEDS ORDERED: ONDANSETRON HCL/PF 4 MG/2 ML VIAL IVP PRN (11:00)
[2024-01-11 11:04] LABS: INR 0.96 (0.91-1.10); PARTIAL THROMBOPLASTIN TIME 24.7 SEC (24.3-34.3); PROTHROMBIN TIME 9.9 SECS (9.2-11.1)
[2024-01-11] MEDS ORDERED: IOHEXOL-300 100 ML VIAL IV ONE (11:15)
[2024-01-11] MEDS ORDERED: IV NS 0.9% 250 ML IV ONE (11:16)
[2024-01-11] MEDS: BLOOD SUGAR DIAGNOSTIC 1 EACH STRIP IN SCH (12:30)
[2024-01-11] MEDS: GABAPENTIN 400 MG CAPSULE PO SCH (13:40)
[2024-01-11] MEDS ORDERED: ACETAMINOPHEN 325 MG TABLET PO PRN (14:00)
[2024-01-11] MEDS ORDERED: hydrALAZINE HCL IV 20 MG VIAL IV PRN (15:00)
[2024-01-11 16:00] VITALS: BP 137/69; TEMP 97.9; O2SAT 95
[2024-01-11] MEDS: HYDROCODONE/APAP 10/325MG TABLET PO PRN (16:18)
[2024-01-11] MEDS ORDERED: ALBUTEROL FS 2.5 MG/3 ML VIAL.NEB IH SCH (17:00)
[2024-01-11] MEDS: INSULIN REGULAR, HUMAN 100 UNIT/ML 3 ML VIAL SQ PRN (17:16)
[2024-01-11] MEDS: LORAZEPAM 1 MG TABLET PO SCH (17:30)
[2024-01-11 20:00] VITALS: BP 122/73; TEMP 98.1; O2SAT 94
[2024-01-11] MEDS: HEPARIN SODIUM, PORCINE 5000 UNITS/1 ML VIAL SQ SCH (21:00)
[2024-01-11] MEDS: TRAZODONE 50 MG TABLET PO SCH (22:01)
[2024-01-11] MEDS: INSULIN GLARGINE, 100 UNIT/ML CARTRIDGE SQ SCH (22:10)
[2024-01-11] MEDS: OLANZAPINE 5 MG TABLET PO SCH (22:16)
[2024-01-12] VITALS (9 sets, daily range): BP systolic 111–147; BP diastolic 57–90; TEMP 97.7–99; O2SAT 94–99
[2024-01-12] MEDS: BUDESONIDE RESPULE INH 0.5 MG/2 ML AMPUL.NEB IH SCH (08:17)
[2024-01-12] MEDS: IPRATROPIUM NEB FS 0.5 MG/2.5 ML AMPUL.NEB IH SCH (08:23)
[2024-01-12] MEDS: LOSARTAN POTASSIUM 50 MG TABLET PO SCH (09:01)
[2024-01-12] MEDS: DULOXETINE HCL 30 MG CAPSULE.DR PO SCH (09:02)
[2024-01-12] MEDS: FERROUS SULFATE (325 MG) 325 MG/TAB TABLET PO SCH (09:02)
[2024-01-12] MEDS: AMLODIPINE BESYLATE 5 MG TABLET PO SCH (09:03)
[2024-01-12] MEDS: SERTRALINE HCL 25 MG TABLET PO SCH (09:03)
[2024-01-12 09:57] LABS: CALCIUM, SERUM 8.6 mg/dL (8.5-10.1); CARBON DIOXIDE 27 mmol/L (21-32); CHLORIDE 106 mmol/L (98-107); GLUCOSE 144 mg/dL (74-106); POTASSIUM 4.2 mmol/L (3.5-5.1); SODIUM SERUM 139 mmol/L (136-145); UREA NITROGEN, BLOOD 10 mg/dL (7-18)
[2024-01-12 10:02] LABS: ALANINE AMINOTRANSFERASE 16 U/L (12-78); ALKALINE PHOSPHATASE 66 U/L (46-116); ASPARTATE AMINOTRANSFERASE 11 U/L (15-37); BILIRUBIN,TOTAL 0.3 mg/dL (0.2-1.0); CREATININE 0.9 mg/dL (0.6-1.3); MAGNESIUM 2.3 mg/dL (1.8-2.4); PHOSPHORUS 3.4 mg/dL (2.5-4.9); TOTAL PROTEIN, SERUM 6.5 g/dL (6.4-8.2)
[2024-01-12 10:15] LABS: BASOPHILS # (AUTO) 0.1 K/uL (0.0-0.2); BASOPHILS % (AUTO) 1.2 % (0.0-2.0); EOSINOPHILS # (AUTO) 0.3 K/uL (0.0-0.7); EOSINOPHILS % (AUTO) 3.6 % (0.0-6.0); HEMATOCRIT 40 % (39-51); HEMOGLOBIN 13.5 g/dL (13.5-17.5); LYMPHOCYTES # (AUTO) 1.9 K/uL (0.8-4.8); LYMPHOCYTES % (AUTO) 27.6 % (20.0-44.0); MEAN CORPUSCULAR HEMOGLOBIN 31 PG (26.0-33.0); MEAN CORPUSCULAR HGB CONC 33 g/dl (31.0-36.0); MEAN CORPUSCULAR VOLUME 92 fL (80-96); MONOCYTES # (AUTO) 0.7 K/uL (0.1-1.30); MONOCYTES % (AUTO) 9.9 % (2.0-12.0); NEUTROPHILS # (AUTO) 4.1 K/uL (1.8-8.9); NEUTROPHILS % (AUTO) 57.7 % (43.0-81.0); PLATELET COUNT (AUTO) 301 K/uL (150-450); RED CELL DISTRIBUTION WIDTH 13.5 % (11.5-15.0)
[2024-01-12] MEDS: IBUPROFEN 400 MG TABLET PO PRN (15:58)
[2024-01-13] VITALS (11 sets, daily range): BP systolic 125–137; BP diastolic 73–78; TEMP 97.9–98.2; O2SAT 92–99
[2024-01-13] MEDS: IPRATROPIUM NEB FS 0.5 MG/2.5 ML AMPUL.NEB IH SCH (01:30)
[2024-01-13] MEDS: HYDROCODONE/APAP 10/325MG TABLET PO PRN (18:55)
[2024-01-14 08:29] VITALS: O2SAT 93
[2024-01-14 08:41] VITALS: O2SAT 97
[2024-01-14 08:55] VITALS: BP 127/73
[2024-01-14 12:00] LABS: THYROID STIMULATING HORMONE 0.817 uIU/mL (0.358-3.74)
[2024-01-14 13:43] VITALS: O2SAT 94
[2024-01-14 13:52] VITALS: O2SAT 96
== END 2024-01-14 16:04 | DRG 645 ==
LOC: ER 10:27 → MED 12:14 → TELE 01-12 04:10 → MED 01-12 15:39
PROVIDERS: ADMIT Internal Medicine; ATTEND Internal Medicine
DX: E04.1 Nontoxic single thyroid nodule (principal); Z95.0 Presence of cardiac pacemaker; E11.9 Type 2 diabetes mellitus without complications; F03.90 Unspecified dementia, unspecified severity, without behavioral disturbance, psychotic disturbance, mood disturbance, and anxiety; Z85.828 Personal history of other malignant neoplasm of skin; I10 Essential (primary) hypertension; Z79.4 Long term (current) use of insulin; J44.9 Chronic obstructive pulmonary disease, unspecified; Z79.84 Long term (current) use of oral hypoglycemic drugs; F17.210 Nicotine dependence, cigarettes, uncomplicated
CPT/HCPCS: 36415; 70491-TC; 76536-TC; 80048-TC; 80053-TC; 82962-TC; 83735-TC; 84100-TC; 84439-TC; 84443-TC; 85025-TC; 85730-TC; 94760-TC; 94799-TC; G0378; J1644; J1815; J7050; Q9967

== ENCOUNTER 2024-12-26 22:36 | Emergency (ER) | payer MEDICARE, OTHER ==
[~2024-12-26] VITALS: Ht 185.4 cm; Wt 81.6 kg
[~2024-12-26 22:36] MED LIST changes: -ASCO500C17 PO; -AZIT500T4 PO; -CEFT1VIA15 IV; -DULO30CA2 PO; +DULO60CA45 PO; +FERR325T28 PO; +FLUT1DIS3 IH; +GABA-536 PO; -INSU100V28 IJ; +INSU100V30 SQ; +INSU100V7 SQ; +LORA-259 PO; +LOSA50TA3 PO; +METF-440 PO; +MULT-213 PO; +NEURIVA PO; -OLAN10TA3 PO; +OLAN5TAB3 PO; -SERT100T PO; +SERT25TA PO; +TIOT18CA3 IH
[2024-12-26] MEDS ORDERED: KETOROLAC TROMETHAMINE INJ 30 MG/ML VIAL ONE (23:21)
[2024-12-26] MEDS: KETOROLAC TROMETHAMINE INJ 30 MG/ML VIAL IM ONE (23:27)
[2024-12-26 23:30] VITALS: BP 143/84; TEMP 98.1
[2024-12-27] VITALS: O2SAT 98
== END 2024-12-27 00:27 ==
LOC: ER 22:52
DX: G89.29 Other chronic pain (principal); I10 Essential (primary) hypertension; E11.9 Type 2 diabetes mellitus without complications; F03.90 Unspecified dementia, unspecified severity, without behavioral disturbance, psychotic disturbance, mood disturbance, and anxiety; F17.200 Nicotine dependence, unspecified, uncomplicated; Z79.51 Long term (current) use of inhaled steroids; Z79.84 Long term (current) use of oral hypoglycemic drugs; Z79.899 Other long term (current) drug therapy; Z95.0 Presence of cardiac pacemaker
CPT/HCPCS: 99283; 96372; J1885

== ENCOUNTER 2025-06-02 14:42 | Emergency (ER) | payer MEDICARE, OTHER ==
[~2025-06-02] VITALS: Ht 182.9 cm; Wt 102.1 kg
[2025-06-02 18:16] VITALS: BP 140/95; TEMP 98.6; O2SAT 96
== END 2025-06-02 18:17 | disposition home or self-care (01) ==
LOC: ER 14:51
DX: M25.561 Pain in right knee (principal); M25.551 Pain in right hip; I11.9 Hypertensive heart disease without heart failure; E11.9 Type 2 diabetes mellitus without complications; F17.200 Nicotine dependence, unspecified, uncomplicated; F03.90 Unspecified dementia, unspecified severity, without behavioral disturbance, psychotic disturbance, mood disturbance, and anxiety; G89.29 Other chronic pain; Z79.51 Long term (current) use of inhaled steroids; Z79.84 Long term (current) use of oral hypoglycemic drugs; Z79.899 Other long term (current) drug therapy; Z95.0 Presence of cardiac pacemaker
CPT/HCPCS: 73502; 73564-TC

== ENCOUNTER 2025-06-07 13:14 | Inpatient (IN) | payer MEDICARE, OTHER ==
[2025-06-06 20:00] VITALS: BP 147/85; TEMP 97.9; O2SAT 94
[~2025-06-07] VITALS: Ht 182.9 cm; Wt 98.9 kg
[2025-06-07 14:51] LABS: CALCIUM, SERUM 9.2 mg/dL (8.5-10.1); CREATININE 1.2 mg/dL (0.6-1.3); SODIUM SERUM 142 mmol/L (136-145); UREA NITROGEN, BLOOD 8 mg/dL (7-18)
[2025-06-07 14:54] LABS: PLATELET COUNT (AUTO) 314 K/uL (150-450); RED BLOOD CELL COUNT(AUTO) 4.59 MIL/uL (4.5-6.0); RED CELL DISTRIBUTION WIDTH 13.7 % (11.5-15.0); WHITE BLOOD COUNT (AUTO) 7.1 K/uL (4.3-11.0)
[2025-06-07 14:57] LABS: ASPARTATE AMINOTRANSFERASE 18 U/L (15-37); TOTAL PROTEIN, SERUM 7.2 g/dL (6.4-8.2)
[2025-06-07 15:28] LABS: APPEARANCE,URINE CLEAR (CLEAR); BLOOD, URINE NEGATIVE Ery/uL (NEGATIVE); LEUKOCYTE ESTERASE ,URINE NEGATIVE (NEGATIVE); NITRITE, URINE NEGATIVE (NEGATIVE); UGLUCOSE NEGATIVE (NEGATIVE)
[2025-06-07 15:42] LABS: AMPHETAMINE, URINE NEGATIVE (NEGATIVE); BARBITURATE, URINE NEGATIVE (NEGATIVE); BENZODIAZEPINE, URINE NEGATIVE (NEGATIVE); CANNABINOID, URINE NEGATIVE (NEGATIVE); COCCAINE, URINE NEGATIVE (NEGATIVE)
[2025-06-07 15:45] LABS: OPIATE, URINE POSITIVE (NEGATIVE)
[2025-06-07] MEDS ORDERED: MAGNESIUM HYDROXIDE 30 ML UDC PO PRN (16:30)
[2025-06-07] MEDS ORDERED: ACETAMINOPHEN 325 MG TABLET PO PRN (16:30)
[2025-06-07] MEDS ORDERED: MAG HYDROX/AL HYDROX/SIMETH 30 ML UDC PO PRN (16:30)
[2025-06-07] MEDS ORDERED: Z GUARD REMEDY 4 OZ OINT TP PRN (16:30)
[2025-06-07] MEDS ORDERED: ONDANSETRON HCL/PF 4 MG/2 ML VIAL IVP PRN (16:30)
[2025-06-07] MEDS ORDERED: HYDROCODONE/APAP 10/325MG TABLET ONE (16:35)
[2025-06-07] MEDS: HYDROCODONE/APAP 10/325MG TABLET PO PRN (16:37)
[2025-06-07 18:36] VITALS: BP 150/89; TEMP 97.7; O2SAT 94
[2025-06-08] VITALS (7 sets, daily range): BP systolic 144–158; BP diastolic 84–98; TEMP 97.7–98.1; O2SAT 95–98
[2025-06-08] MEDS: LORAZEPAM 0.5 MG TABLET PO ONE (01:24)
[2025-06-08] MEDS ORDERED: BISACODYL (5 MG) 5 MG TABLET.DR PO PRN (09:30)
[2025-06-08] MEDS: IPRATROPIUM NEB FS 0.5 MG/2.5 ML AMPUL.NEB NEB SCH (14:29)
[2025-06-08] MEDS: ALBUTEROL FS 2.5 MG/0.5 ML VIAL.NEB NEB SCH (14:29)
[2025-06-08] MEDS: LORAZEPAM 1 MG TABLET PO SCH (17:20)
[2025-06-08] MEDS: METFORMIN 500 MG TABLET PO SCH (17:20)
[2025-06-08] MEDS: BUDESONIDE RESPULE INH 0.5 MG/2 ML AMPUL.NEB NEB SCH (20:22)
[2025-06-08] MEDS: TRAZODONE 50 MG TABLET PO SCH (21:11)
[2025-06-08] MEDS: SENNOSIDES 8.6 MG TABLET PO SCH (21:11)
[2025-06-08] MEDS: OLANZAPINE 5 MG TABLET PO SCH (21:11)
[2025-06-08] MEDS: INSULIN GLARGINE, 100 UNIT/ML CARTRIDGE SQ SCH (21:27)
[2025-06-09] VITALS (10 sets, daily range): BP systolic 124–154; BP diastolic 72–89; TEMP 97.7–98.4; O2SAT 93–99
[2025-06-09] MEDS: BACLOFEN (10 MG) 10 MG TABLET PO SCH (09:24)
[2025-06-09] MEDS: AMLODIPINE BESYLATE 5 MG TABLET PO SCH (09:26)
[2025-06-09] MEDS: LOSARTAN POTASSIUM 50 MG TABLET PO SCH (09:26)
[2025-06-09] MEDS: FERROUS SULFATE (325 MG) 325 MG/TAB TABLET PO SCH (09:26)
[2025-06-09] MEDS: SERTRALINE HCL 50 MG TABLET PO SCH (09:28)
[2025-06-09] MEDS ORDERED: FLUT1DIS5 IH (13:20)
[2025-06-09] MEDS ORDERED: ACET-73 PO (13:20)
[2025-06-09] MEDS ORDERED: CALC-1276 PO (13:20)
[2025-06-09] MEDS ORDERED: BACL10TA PO (13:20)
[2025-06-10 07:26] VITALS: O2SAT 94
[2025-06-10 07:51] VITALS: O2SAT 99
[2025-06-10 08:47] VITALS: BP 136/74; TEMP 97.7; O2SAT 93
[2025-06-10 13:18] VITALS: O2SAT 94
[2025-06-10 13:33] VITALS: O2SAT 99
== END 2025-06-10 16:37 | DRG 552 ==
LOC: ER 13:30 → MED 18:50
PROVIDERS: ADMIT Internal Medicine; ATTEND Nurse Practitioner Acute Care
DX: M47.812 Spondylosis without myelopathy or radiculopathy, cervical region (principal); G93.40 Encephalopathy, unspecified; Z59.00 Homelessness unspecified; M16.11 Unilateral primary osteoarthritis, right hip; G89.29 Other chronic pain; J44.9 Chronic obstructive pulmonary disease, unspecified; I10 Essential (primary) hypertension; E11.9 Type 2 diabetes mellitus without complications; F03.90 Unspecified dementia, unspecified severity, without behavioral disturbance, psychotic disturbance, mood disturbance, and anxiety; Z95.0 Presence of cardiac pacemaker; Z91.81 History of falling; Z98.890 Other specified postprocedural states; Z79.51 Long term (current) use of inhaled steroids; Z79.4 Long term (current) use of insulin; Z79.84 Long term (current) use of oral hypoglycemic drugs; Z79.899 Other long term (current) drug therapy; Z85.828 Personal history of other malignant neoplasm of skin
CPT/HCPCS: 36415; 70490-TC; 71045-TC; 73700-TC; 80048-TC; 80076-TC; 82962-TC; 84443-TC; 85025-TC; 94760-TC; 94761-TC; 94799-TC; 97112-TC; 97116-TC; 97530-TC; G0378; J1815